=== PATIENT | male | born 1995 | race Caucasian/White ===

== ENCOUNTER → 2018-02-23 09:10 | Outpatient (CLI) | payer OTHER, MEDICAID, SELFPAY ==
[2018-02-23 10:32] LABS: Lithium < 0.2 mmol/L (0.6-1.2)
== END ==
PROVIDERS: Family Provider Family Medicine; PCP Family Medicine; Visit Provider Psychiatry & Neurology Psychiatry
DX: Z51.81 Encounter for therapeutic drug level monitoring (principal)
CPT/HCPCS: 36415; 80178

== ENCOUNTER → 2018-02-27 13:53 | Outpatient (CLI) | payer OTHER, MEDICAID, SELFPAY ==
[2018-02-27 14:35] LABS: Add Manual Diff / Slide Review NO; Basophils Percent Auto 0.4 % (0-2); Eosinophils Percent Auto 1.4 % (2-4); Hematocrit 46.7 % (41-53); Hemoglobin 15.8 g/dL (13.5-17.5); Lymphocytes Percent Auto 13.8 % (25-40); Mean Corpuscular HGB Conc 33.8 % (30-36); Mean Corpuscular Volume 85.8 fL (80-100); Monocytes Percent Auto 9.4 % (3-14); Neutrophils Absolute Auto 10100 /uL (3000-5900); Platelet Count 278 X10^3/uL (150-400); Red Blood Cell Count 5.44 X10^6/uL (4.5-5.9); Red Cell Distribution Width 13.6 % (11.6-14.8); White Blood Cell Count 13.4 X10^3/uL (4.5-11.0)
[2018-02-27 14:53] LABS: Lithium 0.4 mmol/L (0.6-1.2)
[2018-02-27 14:55] LABS: Alanine Aminotransferase 39 IU/L (21-72); Albumin 4.6 g/dL (3.5-5.0); Albumin Globulin Ratio 1.4 (1.0-2.8); Alkaline Phosphatase 115 U/L (38-126); Aspartate Aminotransferase 32 IU/L (17-59); BUN Creatinine Ratio 15.6 (6-22); Bilirubin Total 0.4 mg/dL (0.2-1.3); Blood Urea Nitrogen 14 mg/dL (9-20); Calcium 9.5 mg/dL (8.4-10.2); Carbon Dioxide 31 mmol/L (22-32); Chloride 101 mmol/L (98-107); Estimated Glomerular Filt Rate > 60.0 mL/min (>60); Globulin 3.3 g/dL (1.7-4.1); Glucose 96 mg/dL (70-100); HEMOLYSIS < 15 (0-50); Potassium 4.1 mmol/L (3.4-5.1); Sodium 143 mmol/L (137-145); Total Protein 7.9 g/dL (6.3-8.2)
== END ==
PROVIDERS: Psychiatry & Neurology Psychiatry; Family Provider Family Medicine; PCP Family Medicine; Visit Provider Physician Assistant
DX: R10.9 Unspecified abdominal pain (principal); Z51.81 Encounter for therapeutic drug level monitoring
CPT/HCPCS: 36415; 80053; 80178; 85025

== ENCOUNTER → 2018-03-02 12:26 | Outpatient (CLI) | payer OTHER, MEDICAID, SELFPAY ==
--- NOTE | 2018-03-02 13:46 | DI.CT.S_ITS ---
PROCEDURE: CT ABDOMEN PELVIS W CON INDICATIONS: Left lower quadrant abdominal pain. Tender with palpation TECHNIQUE: After the administration of oral and intravenous contrast, 5 mm thick sections acquired from the diaphragms to the symphysis. 5 mm thick coronal and sagittal reformats were performed. For radiation dose reduction, the following was used: automated exposure control, adjustment of mA and/or kV according to patient size. COMPARISON: None. FINDINGS: Image quality: Excellent. ABDOMEN: Lung bases: Lung bases are clear. Heart size is normal. Solid organs: Liver is normal in size and enhancement. Gallbladder appears normal. Biliary system is non-dilated. Pancreas enhances normally. Spleen is normal in size and enhancement. No adrenal nodules. Kidneys are normal in size and enhancement, without hydronephrosis. Peritoneum and bowel: Stomach, small bowel, and colon loops are normal in caliber and wall thickness. No free fluid or air. Nodes and vessels: No retroperitoneal or mesenteric adenopathy. Aorta and inferior vena cava are normal in caliber. Miscellaneous: No ventral hernias. PELVIS: Genitourinary: Bladder wall thickness is normal. Miscellaneous: No inguinal hernias or adenopathy. There is an acute inflammatory process at the left lower quadrant where focal inflammation in the pericolonic fat is present just below the axial level of the anterior superior iliac spine. This is best seen centered on series 2 image 53. Surrounding the inflammation is mild edema, and within the inflammatory area is an ovoid fat radiodensity, measuring up to 2.7 cm AP and 1.3 cm transverse. This may represent an epiploic appendage, which with torsion can produce findings mimicking acute diverticulitis. The likelihood of a diverticular inflammatory process is relatively low in this young patient of age 22. Bones: No suspicious bony lesions. No vertebral body compression fractures. IMPRESSION: Acute inflammatory process left lower quadrant likely representing epiploic appendagitis rather than acute diverticulitis in my opinion. Dictated by: Abhay Greco M.D. on 03/02/2018 at 14:04 Approved by: Abhay Greco M.D. on 03/02/2018 at 14:07
== END ==
PROVIDERS: Family Provider Family Medicine; PCP Family Medicine; Visit Provider Physician Assistant
DX: R10.32 Left lower quadrant pain (principal)
CPT/HCPCS: 74177; Q9967

== ENCOUNTER → 2018-03-17 08:00 | Outpatient (CLI) | payer OTHER, MEDICAID, SELFPAY | PROVIDERS: Family Provider Family Medicine; PCP Family Medicine | DX: Z23 Encounter for immunization (principal) | CPT/HCPCS: 90471; 90686 ==

== ENCOUNTER → 2018-09-25 12:38 | Outpatient (CLI) | payer OTHER, MEDICAID, SELFPAY ==
[2018-09-25 13:34] LABS: Urine Cocaine Negative (Negative); Urine Morphine/Opi cutoff 2000 Negative (Negative); Urine Tetrahydrocannabinol Positive (Negative)
[2018-09-25 13:35] LABS: Urine Amphetamines Negative (Negative); Urine Barbiturates Negative (Negative); Urine Benzodiazepines Negative (Negative); Urine MDMA Negative (Negative); Urine Methadone Negative (Negative); Urine Methamphetamines Negative (Negative); Urine Oxycodone Negative (Negative); Urine Phencyclidine Negative (Negative); Urine Tricyclic Antidepressant Negative (Negative)
[2018-09-25 13:46] LABS: Lithium 0.2 mmol/L (0.6-1.2)
[2018-09-25 13:48] LABS: Alanine Aminotransferase 29 IU/L (21-72); Albumin 4.7 g/dL (3.5-5.0); Albumin Globulin Ratio 1.5 (1.0-2.8); Alkaline Phosphatase 117 U/L (38-126); Aspartate Aminotransferase 29 IU/L (17-59); BUN Creatinine Ratio 16.3 (6-22); Bilirubin Total 0.2 mg/dL (0.2-1.3); Blood Urea Nitrogen 13 mg/dL (9-20); Calcium 9.6 mg/dL (8.4-10.2); Carbon Dioxide 28 mmol/L (22-32); Chloride 100 mmol/L (98-107); Estimated Glomerular Filt Rate > 60.0 mL/min (>60); Globulin 3.2 g/dL (1.7-4.1); Glucose 101 mg/dL (70-100); HEMOLYSIS < 15 (0-50); Potassium 4.4 mmol/L (3.4-5.1); Sodium 140 mmol/L (137-145); Total Protein 7.9 g/dL (6.3-8.2)
[2018-09-25 14:05] LABS: Free T4, Direct Thyroxine 0.94 ng/dL (0.78-2.19)
[2018-09-25 14:19] LABS: Thyroid Stimulating Hormone 2.47 uIU/mL (0.47-4.68)
== END ==
PROVIDERS: Family Provider Family Medicine; PCP Family Medicine; Visit Provider Psychiatry & Neurology Psychiatry
DX: F31.73 Bipolar disorder, in partial remission, most recent episode manic (principal)
CPT/HCPCS: 36415; 80053; 80178; 80305; 84439; 84443

== ENCOUNTER → 2018-10-21 07:42 | Outpatient (CLI) | payer OTHER, MEDICAID, SELFPAY ==
[2018-10-21 09:45] LABS: Hemoglobin A1C% w Est Avg Glu 5.2 % (4.0-6.0)
[2018-10-21 09:51] LABS: Alanine Aminotransferase 28 IU/L (21-72); Albumin 4.7 g/dL (3.5-5.0); Albumin Globulin Ratio 1.3 (1.0-2.8); Alkaline Phosphatase 131 U/L (38-126); Aspartate Aminotransferase 31 IU/L (17-59); BUN Creatinine Ratio 16.3 (6-22); Bilirubin Total 0.7 mg/dL (0.2-1.3); Blood Urea Nitrogen 13 mg/dL (9-20); Calcium 9.4 mg/dL (8.4-10.2); Carbon Dioxide 31 mmol/L (22-32); Chloride 102 mmol/L (98-107); Cholesterol 202 mg/dL (140-199); Estimated Glomerular Filt Rate > 60.0 mL/min (>60); Globulin 3.6 g/dL (1.7-4.1); Glucose 96 mg/dL (70-100); HDL Cholesterol 39 mg/dL (40-60); HEMOLYSIS 22 (0-50); LDL Cholesterol Calculated 123 mg/dL (<100); Potassium 3.9 mmol/L (3.4-5.1); Sodium 141 mmol/L (137-145); Total Protein 8.3 g/dL (6.3-8.2); Triglycerides 199 mg/dL (35-150)
[2018-10-21 09:59] LABS: Lithium 0.3 mmol/L (0.6-1.2)
[2018-10-21 10:46] LABS: HIV 1 and 2 Antibody NEGATIVE (NEGATIVE)
[2018-10-21 11:36] LABS: Urine N gonorrhoeae NOT DETECTED
[2018-10-21 11:54] LABS: Urine Chlamydia NOT DETECTED
== END ==
PROVIDERS: Family Provider Family Medicine; PCP Family Medicine; Visit Provider Psychiatry & Neurology Psychiatry
DX: F31.9 Bipolar disorder, unspecified (principal)
CPT/HCPCS: 36415; 80053; 80061; 80178; 83036; 84403; 86703; 87491; 87591

== ENCOUNTER 2018-12-27 19:37 | Emergency (ER) | payer OTHER, SELFPAY ==
[2018-12-27 19:40] VITALS: BP 142/84; PULSE 78; RESP 16; TEMP 36.4; O2SAT 100; BMI 27.3
--- NOTE | 2018-12-27 20:05 | DI.RAD.S_ITS ---
PROCEDURE: XR LUMBAR SPINE 2-3V INDICATIONS: L low back pain TECHNIQUE: 3 views of the lumbar spine were acquired. COMPARISON: None. FINDINGS: Bones: 5 zvn-iql-cnitlum vertebrae are present. There is straightening of normal lumbar lordosis. No acute vertebral body compression fractures. No suspicious bony lesions. Soft tissues: Overlying bowel gas pattern is normal. No suspicious soft tissue calcifications. IMPRESSION: Lumbar spine without acute osseous abnormalities. Straightening of lumbar lordosis likely related to patient positioning and/or concurrent muscle spasms. Dictated by: Louis Escamilla M.D. on 12/27/2018 at 20:39 Approved by: Louis Escamilla M.D. on 12/27/2018 at 20:41
[2018-12-27] MEDS: ACETAMINOPHEN 325 MG TABLET 975 MG PO (20:18)
--- NOTE | 2018-12-27 20:44 | ED_ITS ---
HPI - Back Pain/Injury <YOUSUF Maher - Last Filed: 12/27/18 22:12> General Chief Complaint: Back Pain/Injury Stated Complaint: Severe lower back pain on Lft Time Seen by Provider: 12/27/18 19:47 Source: patient and other (friend) Mode of arrival: ambulatory Limitations: no limitations History of Present Illness HPI Narrative: This is a 23-year-old male, nonsmoker, presents ER with his friend in chief complain of left-sided low back pain to buttock area since yesterday. The patient denies injuries, trauma, lifting heavy objects. He reports can't remember how it started, however states pain increases with movement, changing in position or walking. He denies fever, chills, nausea/vomiting, fatigue, urinary symptoms, urinary/bowel incontinence, tingling numbness to lower extremities. He denies history of or current IV drug use. He states he had back issues for about 10 years years ago from the bad posture. He was actually seen at walk-in clinic today and had received Ketoralac 30 mg injection and prescribed with cyclobenzaprine. The patient reports after the medications the pain was mildly improved but he is here since there is no significant improvement and no tests were done at the walk-in clinic. Related Data Previous Rx's Medication Instructions Recorded doxycycline monohydrate 100 mg 100 mg PO BID #20 cap 03/30/18 capsule lithium carbonate 300 mg capsule 600 mg PO BEDTIME #60 cap 06/22/18 venlafaxine ER 150 mg 150 mg PO QAM #30 cap 12/23/18 capsule,extended release 24 hr cyclobenzaprine 10 mg tablet 10 mg PO BEDTIME #30 tab 12/27/18 lidocaine 1 - 2 patch TOP DAILY #15 each 12/27/18 Allergies Allergy/AdvReac Type Severity Reaction Status Date / Time No Known Drug Allergies Allergy Verified 12/27/18 14:46 Review of Systems <YOUSUF Maher - Last Filed: 12/27/18 22:12> Review of Systems General: The HPI HEENT: Denies sinus pain, ear pain, sore throat, difficulty swallowing, dizziness. Respiratory: Denies dyspnea, cough, wheezing, hemoptysis, sputum. Cardiovascular: Denies chest pain, palpitations, orthopnea, edema. Gastrointestinal: Denies nausea, vomiting, abdominal pain, diarrhea, constipation, melena. : See HPI Musculoskeletal: See HPI Skin: Denies rash, skin lesions, or other. Neurologic: Denies weakness, headache, numbness, change in speech, confusion, seizures, incoordination. Psychiatric: No concerning psychosocial issues. 12-point review of systems is negative except for those stated above. PFSH <YOUSUF Maher - Last Filed: 12/27/18 22:12> Medical History (Updated 12/27/18 @ 21:53 by YOUSUF Maher) Bipolar 2 disorder, major depressive episode (Acute) Social History Smoking Status: Never smoker second hand exposure: No alcohol intake: current substance use type: marijuana Social History Smoking Status: Never smoker second hand exposure: No alcohol intake: current substance use type: marijuana Exam <YOUSUF Maher - Last Filed: 12/27/18 22:12> Narrative Exam Narrative: GEN: Alert, oriented x 3, and in no acute distress. Head: Normal cephalic, atraumatic. No scalp or temporal tenderness, palpable mass or rash. EYES: Pupils are equal, round, and reactive to light and accommodation. Extraocular muscles are intact bilaterally. There is no subconjunctival hemorrhage, exudate and sclera non-icteric. ENT: Nose without bleeding, purulent discharge. Mucous membrane moist, no mucosal lesion. Throat without erythema, tonsillar hypertrophy or exudate. Uvula in midline, airway patent. Neck: Trachea in midline. No JVD, non-tender without lymphadenopathy. No masses or thyroid megaly. Supple, non-tender and meningeal signs. CARDIAC: Normal regular rate and rhythm without murmurs, gallops, or rubs. No chest wall tenderness. No peripheral edema, cyanosis or pallor. Capillary refill is less than 2 seconds. No carotid bruits. RESPIRATORY: Lungs are cleat to auscultate bilaterally. No cough, wheezes, rales, or rhonchi. No stridor, respiratory distress, increase work of breathing, or accessary muscle used. ABD: Abdomen soft, nontender and non-distended. No guarding or rebound tenderness to palpate. Bowel sounds are normal in all 4 quadrants. There is no palpable masses or organomegaly. EXT: Full painless ROM of all extremities with no loss of sensation, strength, effusion or edema. SKIN: Warm, dry, normal color for patient. No erythema, lesions or rash. NEUROLOGICAL: Alert and oriented to place, time and person. Sensation and motor function intact bilaterally. No facial droops, dysphasia. PSYCHIATRIC: Good judgement and reason, without hallucinations, abnormal affect or abnormal behaviors during the examination. Initial Vital Signs Initial Vital Signs: Vital Signs Temperature 97.6 F 12/27/18 19:40 Pulse Rate 78 12/27/18 19:40 Respiratory Rate 16 12/27/18 19:40 Blood Pressure 142/84 H 12/27/18 19:40 Pulse Oximetry 100 12/27/18 19:40 Back/Spine/Pelvis Back: normal to inspection Cervical Spine: normal cervical lordosis and cervical ROM normal Thoracic/Lumbar Spine: thoracic and lumbar spine normal to inspection, pain with thoraco-lumbar ROM, paraspinal tenderness (L side), thoraco-lumbar ROM limited, thoraco-lumbar spasm, No thoracic spinal tenderness and No lumbar spinal tenderness Sacroiliac Joints: No pain elicited by compression of iliac crest maneuver and No pain elicited by passive hyperextension of lower extremity <Simeon Julien DO - Last Filed: 12/28/18 03:52> Initial Vital Signs Initial Vital Signs: Vital Signs Temperature 97.6 F 12/27/18 19:40 Pulse Rate 78 12/27/18 19:40 Respiratory Rate 16 12/27/18 19:40 Blood Pressure 142/84 H 12/27/18 19:40 Pulse Oximetry 100 12/27/18 19:40 Course <YOUSUF Maher - Last Filed: 12/27/18 22:12> Orders Ordered: ED Orders 12/27/18 20:05 XR lumbar spine 2-3V Stat Discontinued Medications Acetaminophen (Tylenol) 975 mg PO NOW ONE Stop: 12/27/18 20:06 Last Admin: 12/27/18 20:18 Dose: 975 mg Vital Signs - 8 hr 12/27/18 21:45 Pulse Rate 67 Respiratory Rate 16 Blood Pressure 113/71 Pulse Oximetry 100 <Simeon Julien DO - Last Filed: 12/28/18 03:52> Orders Ordered: ED Orders 12/27/18 20:05 XR lumbar spine 2-3V Stat Discontinued Medications Acetaminophen (Tylenol) 975 mg PO NOW ONE Stop: 12/27/18 20:06 Last Admin: 12/27/18 20:18 Dose: 975 mg Vital Signs - 8 hr 12/27/18 21:45 Pulse Rate 67 Respiratory Rate 16 Blood Pressure 113/71 Pulse Oximetry 100 MDM - Back Pain/Injury <YOUSUF Maher - Last Filed: 12/27/18 22:12> Differential Diagnosis Differential diagnosis: Likely strain of lumbar region, pyelonephritis and other (kidney stone) Medical Records Attestation: I reviewed the patient's medical records. Lab Data Attestation: I reviewed the patient's lab results. Urine Dip Bedside Urine Glucose Negative Bedside Urine Bilirubin + 1 Bedside Urine Ketone +/- 5 Urine Specific Elfrida 1.020 Bedside Urine Occult Blood - Negative Bedside Urine pH 6.5 Bedside Urine Protein +/- 15 Bedside Urine Urobilinogen +/- 1mg Bedside Urine Nitrite - Negative Bedside Urine Leukocytes - Negative Esterase Imaging Data XR-lumbar: Radiologist's impression: Noy Jacques 23 M 1995 [place] [address] XRay Report Signed Patient: WilsonquentinNoy ponce TMR#: [id number] : 1995Acct:[id number] Age/Sex: 23 / MDate of Service: 12/27/18 Loc: ED Accession Number: [id number] Procedure: XR lumbar spine 2-3V Ordering Provider: Duane Haynes PROCEDURE: XR LUMBAR SPINE 2-3V INDICATIONS: L low back pain TECHNIQUE: 3 views of the lumbar spine were acquired. COMPARISON: None. FINDINGS: Bones: 5 eri-aif-tsbskbu vertebrae are present. There is straightening of normal lumbar lordosis. No acute vertebral body compression fractures. No suspicious bony lesions. Soft tissues: Overlying bowel gas pattern is normal. No suspicious soft tissue calcifications. IMPRESSION: Lumbar spine without acute osseous abnormalities. Straightening of lumbar lordosis likely related to patient positioning and/or concurrent muscle spasms. Dictated by: Louis Escamilla M.D. on 12/27/2018 at 20:39 Approved by: Louis Escamilla M.D. on 12/27/2018 at 20:41 [facility] Narrative Medical decision making narrative: The patient was medicated with Tylenol 975 mg while he was in ED. He was medicated with Ketolac 30mg IM inj at 3:30 p.m. while he was at walk-in clinic today. Lumbar x-ray shows no acute findings. His lumbar spine has lordosis likely related to his positioning or concurrent muscle spasms. His urine test shows no nitrate, leukocyte esterase. He does not have constitutional symptoms, he is not a IV drug user, does not endorse saddle anesthesia, incontinence. His lower extremities had equal, bilateral full strength against resistence. The patient reports hamstring tightness and discomfort when both legs were elevated at passively but denies back pain. When the patient was reassessed he reports his back pain has decreased mildly and reported as 6/10. We discussed in length that his pain appears to be related as musculoskeletal origin. We discussed red flag symptoms such as fever, chills, nausea/vomiting, increasing or severe pain, fatigue, saddle anesthesia, incontinence, tingling numbness or weakness to lower extremities and to follow with his primary care physician this coming week. He was advised to continue with [id number]-[id number]-fypxodj Tylenol and/or Motrin for pain management and to use cyclobenzaprine that was prescribed by walk-in clinic. Patient was interested in Lidoderm patch to try for his back pain and advised to use on for 12 hours and off for 12 hours. The patient also advised to use warm pack when he is not using Lidoderm for muscle relax. Patient and his friend agrees with the plan of treatment and no further questions expressed at this time. <Simeon Julien DO - Last Filed: 12/28/18 03:52> Lab Data Urine Dip Bedside Urine Glucose Negative Bedside Urine Bilirubin + 1 Bedside Urine Ketone +/- 5 Urine Specific Elfrida 1.020 Bedside Urine Occult Blood - Negative Bedside Urine pH 6.5 Bedside Urine Protein +/- 15 Bedside Urine Urobilinogen +/- 1mg Bedside Urine Nitrite - Negative Bedside Urine Leukocytes - Negative Esterase Discharge Plan Departure Patient Disposition: Home Clinical Impression: Low back pain Qualifiers: Chronicity: acute Back pain laterality: left Sciatica presence: without sciatica Qualified Code(s): M54.5 - Low back pain Discharge Date/Time: 12/27/18 21:46 Interventions: ED Discharge Assessment Last Done: 12/27/18 21:45 Instructions: DI for Low Back Pain Activity Restrictions/Additional Instructions: You have been diagnosed with [low back pain. Your urine test shows no indication of infection or blood in your urine. Your x-ray test in lumbar area shows no acute findings or fracture is]. What to do: *Take your medications as directed. As we discussed, you can take hqbh-sxm-qbhelwa Tylenol or/and Ibuprofen as needed for pain. He can take ibuprofen 400-800 mg 4-3 times a day. Please take it with food to decrease stomach irritation. *Follow up with your primary care provider in 2-3 days, call for an appointment. Let them know you were seen in the ED and that we asked you to be seen in follow up. *Return to ED if you have any new, worsening, or concerning symptoms, such as [severe back pain, numbness tingling to groin area, incontinence, weakness to your lower extremities, chest pain, breathing difficulty, unable to tolerate fluids, fever/chills, any acute concerns]. Prescriptions: New lidocaine 5 % adhesive patch,medicated 1 - 2 patch TOP DAILY Qty: 15 RF: 0 No Action cyclobenzaprine 10 mg tablet 10 mg PO BEDTIME Qty: 30 RF: 0 doxycycline monohydrate 100 mg capsule 100 mg PO BID Qty: 20 RF: 0 lithium carbonate 300 mg capsule 600 mg PO BEDTIME Qty: 60 RF: 5 venlafaxine 150 mg capsule,extended release 24hr 150 mg PO QAM Qty: 30 RF: 5 Referrals: Chris Tejeda MD [Primary Care Provider] - <Simeon Julien DO - Last Filed: 12/28/18 03:52> [facility] Attestation: I was immediately available in the department for consultation. Documentation has been reviewed. I agree with assessment and plan.
[2018-12-27 21:45] VITALS: BP 113/71; PULSE 67; RESP 16; O2SAT 100
== END 2018-12-27 21:46 | disposition home or self-care (01) ==
PROVIDERS: Emergency Provider Nurse Practitioner Family; PCP Family Medicine
DX: M54.5 Low back pain (principal)
CPT/HCPCS: 72100; 81003; 99282; 99283

== ENCOUNTER 2019-01-20 09:00 | Outpatient (RCR) | payer OTHER, SELFPAY ==
--- NOTE | 2018-12-30 16:56 | PT.OIE ---
Current Diagnoses Low back pain (12/30/18) Past Medical History (Last Updated 12/27/18 @ 21:53 by YOUSUF Maher) Bipolar 2 disorder, major depressive episode (Acute) Provider Visit Care Team Role Provider Type Chris Tejeda MD Attending Provider Physician Primary Care Provider Specialty: Family Practice Address: [address] [place] [address], [facility] Email: [email or web address] Physical Therapy Initial Evaluation PT-OP-A Visit Information Start: 12/30/18 13:59 Freq: Status: Active Protocol: Document 12/30/18 13:59 EA (Rec: 12/30/18 14:30 EA [id number]) Out-Patient Physical Therapy Visit Information Visit Information Visit Type Initial Evaluation Visit Start Time 13:00 Visit Stop Time 13:55 Total Visit Minutes 55 Visit Number 1 Evaluation Information Evaluation Date 12/30/18 Precautions Precautions None identified PT-OP-B Current Condition Start: 12/30/18 13:59 Freq: Status: Active Protocol: Document 12/30/18 13:59 EA (Rec: 12/30/18 14:30 EA [id number]) Current Condition History of Current Condition Onset Date 12/26/18 Current Complaints Left low back and upper gluteals pain History of Current Condition Pt reports no recent injury he could relate to current condition; states he always had bad posture. Pt went to ER on 12/27/18 due to severe pain and was given muscle relaxant and underwent lumbar X-rays. He reports followed up check up yesterday with a probable disk herniation diagnosis. 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 Prior Treatments and Tests None reported Recent lumbar X-rays Future Testing and Treatments Planned None reported Treatment Goals Patient/Caregiver Goals 1. Complete pain relief 2. 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 Baseline Function- Recreation/Hobbies Sedentary lifestyle with once a week of yoga exercises Current Functional Impairments (Reported) Functional Limitations- ADL's Independent with moderate difficulty in all functional mobility. Functional Limitations- Mobility/Gait Unable to walk > a mile due to pain Functional Limitations- Work/School Moderate difficulty in all tasks that requires bending, lifting and twisting Functional Limitations- Recreation/ Unable to get back to Yoga Hobbies exercises yet. Personal Factors Other Personal Factors That May Effect Bipolar disorder Therapy/Recovery PT-OP-C Subjective Start: 12/30/18 13:59 Freq: Status: Active Protocol: Document 12/30/18 13:59 EA (Rec: 12/30/18 14:30 EA [id number]) OP-PT Subjective Patient Comments Patient Comments It's difficult to get up from sitting to standing . Patient Reported Progress Same Patient Questionnaires Oswestry Low Back Index Oswestry Score 28 Oswestry Impairment 20 to 39% Impaired (Score 20- 39) PT-OP-F Manual Assessment Start: 12/30/18 13:59 Freq: Status: Active Protocol: Document 12/30/18 15:15 EA (Rec: 12/30/18 15:33 EA [id number]) Manual Assessments Soft Tissue Assessment Soft Tissue Mobility Assessment Tightness to paralumabars, QL, hip ER PT-OP-G Mobility & Gait Start: 12/30/18 13:59 Freq: Status: Active Protocol: Document 12/30/18 15:15 EA (Rec: 12/30/18 15:33 EA [id number]) OP Mobility Evaluation Bed Mobility Rolling Mod difficulty Supine to and from Sit Mod difficulty Transfers Sit to Stand Mode difficulty OP Gait Assessment Gait Gait Assistance Required: Independent Assistive Devices Assistive Device None Comments Gait Comments Stiffed pelvis with limited pelvic vertical displacement with slight antalgic PT-OP-H Neuro Start: 12/30/18 13:59 Freq: Status: Active Protocol: Document 12/30/18 15:15 EA (Rec: 12/30/18 15:33 EA [id number]) Deep Tendon Reflex & Clonus Assessment Deep Tendon Reflex Bilateral Achilles Deep Tendon Reflex 2+ Normal Bilateral Patellar Deep Tendon Reflex 2+ Normal PT-OP-J Posture/Palpation/Skin Start: 12/30/18 13:59 Freq: Status: Active Protocol: Document 12/30/18 15:15 EA (Rec: 12/30/18 15:33 EA [id number]) Posture Evaluation Comments Posture Comments Right hip lat shidted to right with lateral lumbar side bend to left. Palpation Assessment Location One Palpation Location Paralumbars, QL, upper/mid gluteals Palpation Findings Spasm Muscle Guarding PT-OP-K Range of Motion Start: 12/30/18 13:59 Freq: Status: Active Protocol: Document 12/30/18 15:15 EA (Rec: 12/30/18 15:33 EA [id number]) Lumbar Spine Range of Motion Lumbar Spine Active Percentage Testing Position Standing Flexion 50 Extension 75 Rotation Left 55 Rotation Right 50 Lateral Flexion Left 65 Lateral Flexion Right 50 ROM Limitations Soft Tissue Tightness Pain PT-OP-L Special Tests Start: 12/30/18 13:59 Freq: Status: Active Protocol: Document 12/30/18 15:15 EA (Rec: 12/30/18 15:33 EA [id number]) Special Tests Lumbar Spine Special Tests Prone Instability Test Test Results - Slump Test Results - Straight Leg Raise Test Results Left + PT-OP-M Strength Start: 12/30/18 13:59 Freq: Status: Active Protocol: Document 12/30/18 15:15 EA (Rec: 12/30/18 15:33 EA [id number]) Trunk Strength Trunk Manual Muscle Testing Testing Position Sitting Flexion 4- Good- Extension 4- Good- Rotation Left 4- Good- Rotation Right 4- Good- Lateral Flexion Left 4- Good- Lateral Flexion Right 4- Good- Comments Pain limits MMT Hip Strength Hip Manual Muscle Testing Left Reason Not Measured WFL Knee Strength Knee Manual Muscle Testing Left Reason Not Measured WFL Ankle/Foot Strength Ankle and Foot Manual Muscle Testing Left Reason Not Measured WFL Toe Strength Toe Manual Muscle Testing Great Toe Reason Not Measured WFL PT-OP-Q Treatments Start: 12/30/18 13:59 Freq: Status: Active Protocol: Document 12/30/18 13:59 EA (Rec: 12/30/18 14:30 EA [id number]) Self-Care/Home Management Treatment Education Patient Education Body Mechanics Home Exercise Program Joint Protection Pain Management Posture Safety PT-OP-R Modalities Start: 12/30/18 13:59 Freq: Status: Active Protocol: Document 12/30/18 13:59 EA (Rec: 12/30/18 14:30 EA [id number]) Electric Stimulation Electric Stimulation Interferential Current (IFC) Body Location left paralumabars and upper gluteals Intensity 16 Contraction Type Normal Patient Position Supine Combined With Heat/Cold Cold Pack PT-OP-T Assessment and Plan Start: 12/30/18 13:59 Freq: Status: Active Protocol: Document 12/30/18 13:59 EA (Rec: 12/30/18 14:30 EA [id number]) Physical Therapy Assessment Rehab Potential Rehabilitation Potential Good Evaluation Complexity Number of Personal Factors/Comorbidities 1-2 Number of Body Systems Impaired 3 Clinical Presentation at Evaluation Evolving Impairments Impairments Activity Tolerance Functional Activities Gait Pain Posture ROM Soft Tissue Mobility Strength Goals Four Impairment No HEP in place Oil Deliverer Goal (LTG) Patient will demonstrate indep progressive HEP LTG Duration 4 wks Three Impairment OSWESTRY low back disability score of 28/50 Oil Deliverer Goal (LTG) Patient will have OSWESTRY score of less than 10/50 to enhance quality of life LTG Duration 5 wks Two Impairment Impaired lifting Long-Term Goal (LTG) Patient will lift more than 15 # with proper body mechanics with no increase of pain to perform daily task LTG Duration 4 wks One Impairment Decreased tolerance to standing Long-Term Goal (LTG) Patient will stand up more than 30 mins without increase of symptoms LTG Duration 4 wks Assessment Summary Assessment Ambulatory with minimally distress 23 y/o M patient with a referring diagnosis of low back pain. Today patient presented with difficulty in functional transfers and mobility due to pain. Signs and symptoms is consistent with lumbar nerve irritation possibly from disc herniation, with sensory affectation to left L3, L4, L5, however no signs of weakness as patient able to walk on heels and toes . Lumbar ROM assessment reveals limited to SF to right and forward bending. Patient 's slow marisabel with stiffed pelvis is possibly due to back spasm and muscular guarding at this time. He is a good candidate for skilled PT and would greatly benefit to manual PT, therapeutic exercises and modalities for pain. Physical Therapy Plan Frequency and Duration Frequency of Treatment 2x/Week Duration of Treatment 8 Plan of Care Start Date 12/30/18 Plan of Care End Date 02/24/19 Therapeutic Interventions Therapeutic Interventions Home Exercise Program Joint Mobilizations Manual Therapy Patient/Caregiver Education Self-Care/Home Management Soft Tissue Mobilization Taping Therapeutic Exercises Modalities Cold Pack/Ice Massage Electric Stimulation Hot Packs Traction- Mechanical Ultrasound Next Visit Focus/Plan Next Note Type Treatment Note Next Visit Plan Review HEP, Manual PT, flexibility, modalities as needed
--- NOTE | 2018-12-30 16:57 | PT.OPPOC ---
Current Diagnoses Low back pain (12/30/18) Provider Visit Care Team Role Provider Type Chris Tejeda MD Attending Provider Physician Primary Care Provider Specialty: Family Practice Address: [address] [place] [address], [facility] Email: [email or web address] Plan Of Care PT-OP-T Assessment and Plan Start: 12/30/18 13:59 Freq: Status: Active Protocol: Document 12/30/18 13:59 EA (Rec: 12/30/18 14:30 EA [id number]) Physical Therapy Assessment Rehab Potential Rehabilitation Potential Good Evaluation Complexity Number of Personal Factors/Comorbidities 1-2 Number of Body Systems Impaired 3 Clinical Presentation at Evaluation Evolving Impairments Impairments Activity Tolerance Functional Activities Gait Pain Posture ROM Soft Tissue Mobility Strength Goals Four Impairment No HEP in place Plant And Instrument Engineer Goal (LTG) Patient will demonstrate indep progressive HEP LTG Duration 4 wks Three Impairment OSWESTRY low back disability score of 28/50 Plant And Instrument Engineer Goal (LTG) Patient will have OSWESTRY score of less than 10/50 to enhance quality of life LTG Duration 5 wks Two Impairment Impaired lifting Plant And Instrument Engineer Goal (LTG) Patient will lift more than 15 # with proper body mechanics with no increase of pain to perform daily task LTG Duration 4 wks One Impairment Decreased tolerance to standing Plant And Instrument Engineer Goal (LTG) Patient will stand up more than 30 mins without increase of symptoms LTG Duration 4 wks Assessment Summary Assessment Ambulatory with minimally distress 23 y/o M patient with a referring diagnosis of low back pain. Today patient presented with difficulty in functional transfers and mobility due to pain. Signs and symptoms is consistent with lumbar nerve irritation possibly from disc herniation, with sensory affectation to left L3, L4, L5, however no signs of weakness as patient able to walk on heels and toes . Lumbar ROM assessment reveals limited to SF to right and forward bending. Patient 's slow marisabel with stiffed pelvis is possibly due to back spasm and muscular guarding at this time. He is a good candidate fo skilled PT and would greatly benefit to manual PT, therapeutic exercises and modalities for pain. Physical Therapy Plan Frequency and Duration Frequency of Treatment 2x/Week Duration of Treatment 8 Plan of Care Start Date 12/30/18 Plan of Care End Date 02/24/19 Therapeutic Interventions Therapeutic Interventions Home Exercise Program Joint Mobilizations Manual Therapy Patient/Caregiver Education Self-Care/Home Management Soft Tissue Mobilization Taping Therapeutic Exercises Modalities Cold Pack/Ice Massage Electric Stimulation Hot Packs Traction- Mechanical Ultrasound Next Visit Focus/Plan Next Note Type Treatment Note Next Visit Plan Review HEP, Manual PT, flexibility, modalities as needed Plan of Care Dates Plan of Care Start Date 12/30/18 Plan of Care End Date 02/24/19 Please Sign and Return: I have reviewed this Plan of Care and certify that the skilled therapy services above are required to meet the patient?s needs. Physician Signature Date Printed Name and Credentials Clinical Instructor Signature Printed Name and Credentials
--- NOTE | 2019-01-08 10:01 | PT.OTN ---
Current Diagnoses Low back pain (01/08/19) Physical Therapy Treatment Note PT-OP-A Visit Information Start: 12/30/18 13:59 Freq: Status: Active Protocol: Document 01/08/19 09:00 DCW (Rec: 01/08/19 10:01 DCW [id number]) Out-Patient Physical Therapy Visit Information Visit Information Visit Type Treatment Note Visit Start Time 09:00 Visit Stop Time 09:50 Total Visit Minutes 50 Visit Number 2 Number of WASHING AND SCREENING PLANT SUPERVISOR Visits 0 Evaluation Information Evaluation Date 12/30/18 PT-OP-B Current Condition Start: 12/30/18 13:59 Freq: Status: Active Protocol: Document 12/30/18 13:59 EA (Rec: 12/30/18 14:30 EA [id number]) Current Condition History of Current Condition Onset Date 12/26/18 Current Complaints Left low back and upper gluteals pain History of Current Condition Pt reports no recent injury he could relate to current condition; states he always had bad posture. Pt went to ER on 12/27/18 due to severe pain and was given muscle relaxant and underwent lumbar X-rays. He reports followed up check up yesterday with a probable disc heniation diagnosis. 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 Prior Treatments and Tests None reported Recent lumbar X-rays Future Testing and Treatments Planned None reported Treatment Goals Patient/Caregiver Goals 1. Complete pain relief 2. 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 Baseline Function- Recreation/Hobbies Sedentary lifestyle with once a week of yoga exercises Current Functional Impairments (Reported) Functional Limitations- ADL's Independent with moderate difficulty in all functional mobility. Functional Limitations- Mobility/Gait Unable to walk > a mile due to pain Functional Limitations- Work/School Moderate difficulty in all tasks that requires bending, lifting and twisting Functional Limitations- Recreation/ Unable to get back to Yoga Hobbies exercises yet. Personal Factors Other Personal Factors That May Effect Bipolar disorder Therapy/Recovery PT-OP-C Subjective Start: 12/30/18 13:59 Freq: Status: Active Protocol: Document 01/08/19 09:00 DCW (Rec: 01/08/19 10:01 DCW [id number]) OP-PT Subjective Patient Comments Patient Comments It's better than last week. PT-OP-F Manual Assessment Start: 12/30/18 13:59 Freq: Status: Active Protocol: Document 12/30/18 15:15 EA (Rec: 12/30/18 15:33 EA [id number]) Manual Assessments Soft Tissue Assessment Soft Tissue Mobility Assessment Tightness to paralumabars, QL, hip ER PT-OP-G Mobility & Gait Start: 12/30/18 13:59 Freq: Status: Active Protocol: Document 12/30/18 15:15 EA (Rec: 12/30/18 15:33 EA [id number]) OP Mobility Evaluation Bed Mobility Rolling Mod difficulty Supine to and from Sit Mod difficulty Transfers Sit to Stand Mode difficulty OP Gait Assessment Gait Gait Assistance Required: Independent Assistive Devices Assistive Device None Comments Gait Comments Stiffed pelvis with limited pelvic vertical displacement with slight antalgic PT-OP-H Neuro Start: 12/30/18 13:59 Freq: Status: Active Protocol: Document 12/30/18 15:15 EA (Rec: 12/30/18 15:33 EA [id number]) Deep Tendon Reflex & Clonus Assessment Deep Tendon Reflex Bilateral Achilles Deep Tendon Reflex 2+ Normal Bilateral Patellar Deep Tendon Reflex 2+ Normal PT-OP-J Posture/Palpation/Skin Start: 12/30/18 13:59 Freq: Status: Active Protocol: Document 12/30/18 15:15 EA (Rec: 12/30/18 15:33 EA [id number]) Posture Evaluation Comments Posture Comments Right hip lat shidted to right with lateral lumbar side bend to left. Palpation Assessment Location One Palpation Location Paralumbars, QL, upper/mid gluteals Palpation Findings Spasm Muscle Guarding PT-OP-K Range of Motion Start: 12/30/18 13:59 Freq: Status: Active Protocol: Document 12/30/18 15:15 EA (Rec: 12/30/18 15:33 EA [id number]) Lumbar Spine Range of Motion Lumbar Spine Active Percentage Testing Position Standing Flexion 50 Extension 75 Rotation Left 55 Rotation Right 50 Lateral Flexion Left 65 Lateral Flexion Right 50 ROM Limitations Soft Tissue Tightness Pain PT-OP-L Special Tests Start: 12/30/18 13:59 Freq: Status: Active Protocol: Document 12/30/18 15:15 EA (Rec: 12/30/18 15:33 EA [id number]) Special Tests Lumbar Spine Special Tests Prone Instability Test Test Results - Slump Test Results - Straight Leg Raise Test Results Left + PT-OP-M Strength Start: 12/30/18 13:59 Freq: Status: Active Protocol: Document 12/30/18 15:15 EA (Rec: 12/30/18 15:33 EA [id number]) Trunk Strength Trunk Manual Muscle Testing Testing Position Sitting Flexion 4- Good- Extension 4- Good- Rotation Left 4- Good- Rotation Right 4- Good- Lateral Flexion Left 4- Good- Lateral Flexion Right 4- Good- Comments Pain limits MMT Hip Strength Hip Manual Muscle Testing Left Reason Not Measured WFL Knee Strength Knee Manual Muscle Testing Left Reason Not Measured WFL Ankle/Foot Strength Ankle and Foot Manual Muscle Testing Left Reason Not Measured WFL Toe Strength Toe Manual Muscle Testing Great Toe Reason Not Measured WFL PT-OP-Q Treatments Start: 12/30/18 13:59 Freq: Status: Active Protocol: Document 01/08/19 09:00 DCW (Rec: 01/08/19 10:01 DCW [id number]) Therapeutic Exercises Supine Exercises Piriformis Stretch Supine Exercise Name Figure-4, [id number] chest Side bilateral Sitting Exercises Piriformis Stretch Sitting Exercise Name Seated figure-4 Manual Therapy Treatment Soft Tissue Mobilization Piriformis Body Location B Piriformis Mobilization Type Strumming Sustained Pressure Body Position Prone Paraspinals Body Location B Lumbar paraspinals Mobilization Type Strumming Sustained Pressure Body Position Prone Joint Mobilizations Lumbar Spine Joint L1-5 Direction P->A Grade II Body Position Prone Manual Traction Lumbar Details B Short-axis Txn /c strap Body Position Hooklying PT-OP-R Modalities Start: 12/30/18 13:59 Freq: Status: Active Protocol: Document 01/08/19 09:00 DCW (Rec: 01/08/19 10:01 DCW [id number]) Electric Stimulation Electric Stimulation Interferential Current (IFC) Body Location left paralumabars and upper gluteals Duration (Minutes) 15 Intensity 16 Contraction Type Normal Patient Position Supine Combined With Heat/Cold Cold Pack PT-OP-T Assessment and Plan Start: 12/30/18 13:59 Freq: Status: Active Protocol: Document 01/08/19 09:00 DCW (Rec: 01/08/19 10:01 DCW [id number]) Physical Therapy Assessment Impairments Impairments Activity Tolerance Functional Activities Gait Pain Posture ROM Soft Tissue Mobility Strength Goals Four Impairment No HEP in place Prison Goal (LTG) Patient will demonstrate indep progressive HEP LTG Duration 4 wks Three Impairment OSWESTRY low back disability score of 28/50 Associate Professor Of Literature Goal (LTG) Patient will have OSWESTRY score of less than 10/50 to enhance quality of life LTG Duration 5 wks Two Impairment Impaired lifting Associate Professor Of Literature Goal (LTG) Patient will lift more than 15 # with proper body mechanics with no increase of pain to perform daily task LTG Duration 4 wks One Impairment Decrased tolerance to standing Prison Goal (LTG) Patient will stand up more than 30 mins without increase of symptoms LTG Duration 4 wks Assessment Summary Assessment Pt tolerated treatment well with no complaints of increased symptoms. Pt noted piriformis STM kind of hurts but actually feels good. Physical Therapy Plan Frequency and Duration Frequency of Treatment 2x/Week Duration of Treatment 8 Plan of Care Start Date 12/30/18 Plan of Care End Date 02/24/19 Therapeutic Interventions Therapeutic Interventions Home Exercise Program Joint Mobilizations Manual Therapy Patient/Caregiver Education Self-Care/Home Management Soft Tissue Mobilization Taping Therapeutic Exercises Modalities Cold Pack/Ice Massage Electric Stimulation Hot Packs Traction- Mechanical Ultrasound Next Visit Focus/Plan Next Note Type Treatment Note Next Visit Plan Review HEP, Manual PT, flexibility, modalities as needed
--- NOTE | 2019-01-13 10:25 | PT.OTN ---
Current Diagnoses Low back pain (01/13/19) Physical Therapy Treatment Note PT-OP-A Visit Information Start: 12/30/18 13:59 Freq: Status: Active Protocol: Document 01/13/19 09:38 EA (Rec: 01/13/19 09:46 EA [id number]) Out-Patient Physical Therapy Visit Information Visit Information Visit Type Treatment Note Visit Start Time 09:00 Visit Stop Time 09:51 Total Visit Minutes 51 Visit Number 3 Number of BUSINESS TECHNOLOGY TEACHER Visits 0 PT-OP-B Current Condition Start: 12/30/18 13:59 Freq: Status: Active Protocol: Document 12/30/18 13:59 EA (Rec: 12/30/18 14:30 EA [id number]) Current Condition History of Current Condition Onset Date 12/26/18 Current Complaints Left low back and upper gluteals pain History of Current Condition Pt reports no recent injury he could relate to current condition; states he always had bad posture. Pt went to ER on 12/27/18 due to severe pain and was given muscle relaxant and underwent lumbar X-rays. He reports followed up check up yesterday with a probable disc heniation diagnosis. 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 Prior Treatments and Tests None reported Recent lumbar X-rays Future Testing and Treatments Planned None reported Treatment Goals Patient/Caregiver Goals 1. Complete pain relief 2. 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 Baseline Function- Recreation/Hobbies Sedentary lifestyle with once a week of yoga exercises Current Functional Impairments (Reported) Functional Limitations- ADL's Independent with moderate difficulty in all functional mobility. Functional Limitations- Mobility/Gait Unable to walk > a mile due to pain Functional Limitations- Work/School Moderate difficulty in all tasks that requires bending, lifting and twisting Functional Limitations- Recreation/ Unable to get back to Yoga Hobbies exercises yet. Personal Factors Other Personal Factors That May Effect Bipolar disorder Therapy/Recovery PT-OP-C Subjective Start: 12/30/18 13:59 Freq: Status: Active Protocol: Document 01/13/19 09:38 EA (Rec: 01/13/19 09:46 EA [id number]) OP-PT Subjective Patient Comments Patient Comments It's getting better; states would like to know sitting position as he sits all the time at work. PT-OP-F Manual Assessment Start: 12/30/18 13:59 Freq: Status: Active Protocol: Document 12/30/18 15:15 EA (Rec: 12/30/18 15:33 EA [id number]) Manual Assessments Soft Tissue Assessment Soft Tissue Mobility Assessment Tightness to paralumabars, QL, hip ER PT-OP-G Mobility & Gait Start: 12/30/18 13:59 Freq: Status: Active Protocol: Document 12/30/18 15:15 EA (Rec: 12/30/18 15:33 EA [id number]) OP Mobility Evaluation Bed Mobility Rolling Mod difficulty Supine to and from Sit Mod difficulty Transfers Sit to Stand Mode difficulty OP Gait Assessment Gait Gait Assistance Required: Independent Assistive Devices Assistive Device None Comments Gait Comments Stiffed pelvis with limited pelvic vertical displacement with slight antalgic PT-OP-H Neuro Start: 12/30/18 13:59 Freq: Status: Active Protocol: Document 12/30/18 15:15 EA (Rec: 12/30/18 15:33 EA [id number]) Deep Tendon Reflex & Clonus Assessment Deep Tendon Reflex Bilateral Achilles Deep Tendon Reflex 2+ Normal Bilateral Patellar Deep Tendon Reflex 2+ Normal PT-OP-J Posture/Palpation/Skin Start: 12/30/18 13:59 Freq: Status: Active Protocol: Document 12/30/18 15:15 EA (Rec: 12/30/18 15:33 EA [id number]) Posture Evaluation Comments Posture Comments Right hip lat shidted to right with lateral lumbar side bend to left. Palpation Assessment Location One Palpation Location Paralumbars, QL, upper/mid gluteals Palpation Findings Spasm Muscle Guarding PT-OP-K Range of Motion Start: 12/30/18 13:59 Freq: Status: Active Protocol: Document 12/30/18 15:15 EA (Rec: 12/30/18 15:33 EA [id number]) Lumbar Spine Range of Motion Lumbar Spine Active Percentage Testing Position Standing Flexion 50 Extension 75 Rotation Left 55 Rotation Right 50 Lateral Flexion Left 65 Lateral Flexion Right 50 ROM Limitations Soft Tissue Tightness Pain PT-OP-L Special Tests Start: 12/30/18 13:59 Freq: Status: Active Protocol: Document 12/30/18 15:15 EA (Rec: 12/30/18 15:33 EA [id number]) Special Tests Lumbar Spine Special Tests Prone Instability Test Test Results - Slump Test Results - Straight Leg Raise Test Results Left + PT-OP-M Strength Start: 12/30/18 13:59 Freq: Status: Active Protocol: Document 12/30/18 15:15 EA (Rec: 12/30/18 15:33 EA [id number]) Trunk Strength Trunk Manual Muscle Testing Testing Position Sitting Flexion 4- Good- Extension 4- Good- Rotation Left 4- Good- Rotation Right 4- Good- Lateral Flexion Left 4- Good- Lateral Flexion Right 4- Good- Comments Pain limits MMT Hip Strength Hip Manual Muscle Testing Left Reason Not Measured WFL Knee Strength Knee Manual Muscle Testing Left Reason Not Measured WFL Ankle/Foot Strength Ankle and Foot Manual Muscle Testing Left Reason Not Measured WFL Toe Strength Toe Manual Muscle Testing Great Toe Reason Not Measured WFL PT-OP-Q Treatments Start: 12/30/18 13:59 Freq: Status: Active Protocol: Document 01/13/19 09:38 EA (Rec: 01/13/19 09:46 EA [id number]) Cardio Equipment Recumbent Stepper (Sci-Fit) Duration (Minutes) 5 Resistance 2 Seat Position 10 Therapeutic Exercises Supine Exercises 3 Supine Exercise Name Bridge with HIP isomet ABD Resistance GTB Reps/Minutes x 15 reps x 2 2 Supine Exercise Name Low trunk stretch Reps/Minutes x 15 secs x 5 reps each sides 1 Supine Exercise Name SKTC Reps/Minutes x30SH x 2 Piriformis Stretch Supine Exercise Name Figure-4, Ucub-ka-isoqjlpl chest Side bilateral Other Exercises 2 Other Exercise Name Blanco pose: side bending to right Reps/Minutes x 30SH x 2 1 Other Exercise Name Quaroped: camel and cat Reps/Minutes x 10 reps Manual Therapy Treatment Soft Tissue Mobilization Piriformis Body Location B Piriformis Mobilization Type Strumming Sustained Pressure Body Position Prone Paraspinals Body Location B Lumbar paraspinals Mobilization Type Strumming Sustained Pressure Body Position Prone Joint Mobilizations Lumbar Spine Joint L1-5 Direction P->A Grade II Body Position Prone PT-OP-R Modalities Start: 12/30/18 13:59 Freq: Status: Active Protocol: Document 01/13/19 09:38 EA (Rec: 01/13/19 09:46 EA [id number]) Electric Stimulation Electric Stimulation Interferential Current (IFC) Body Location left paralumabars and upper gluteals Duration (Minutes) 15 Intensity 16 Contraction Type Normal Patient Position Supine Combined With Heat/Cold Cold Pack PT-OP-T Assessment and Plan Start: 12/30/18 13:59 Freq: Status: Active Protocol: Document 01/13/19 09:38 EA (Rec: 01/13/19 09:46 EA [id number]) Physical Therapy Assessment Assessment Summary Assessment Improved mobility noted and less tenderness to lumbar region during manual PT. Educated sitting position at work and both feet supported with foot stool. Physical Therapy Plan Next Visit Focus/Plan Next Note Type Treatment Note Next Visit Plan Review HEP, Manual PT, flexibility, modalities as needed
--- NOTE | 2019-01-20 16:00 | PT.OTN ---
Current Diagnoses Low back pain (01/20/19) Physical Therapy Treatment Note PT-OP-A Visit Information Start: 12/30/18 13:59 Freq: Status: Active Protocol: Document 01/20/19 09:00 AMB (Rec: 01/20/19 16:00 AMB [email or web address]) Out-Patient Physical Therapy Visit Information Visit Information Visit Type Treatment Note Visit Start Time 09:00 Visit Stop Time 09:53 Total Visit Minutes 53 Visit Number 4 Number of [employer]INEER Visits 0 PT-OP-B Current Condition Start: 12/30/18 13:59 Freq: Status: Active Protocol: Document 12/30/18 13:59 EA (Rec: 12/30/18 14:30 EA [id number]) Current Condition History of Current Condition Onset Date 12/26/18 Current Complaints Left low back and upper gluteals pain History of Current Condition Pt reports no recent injury he could relate to current condition; states he always had bad posture. Pt went to ER on 12/27/18 due to severe pain and was given muscle relaxant and underwent lumbar X-rays. He reports followed up check up yesterday with a probable disc heniation diagnosis. 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 Prior Treatments and Tests None reported Recent lumbar X-rays Future Testing and Treatments Planned None reported Treatment Goals Patient/Caregiver Goals 1. Complete pain relief 2. 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 Baseline Function- Recreation/Hobbies Sedentary lifestyle with once a week of yoga exercises Current Functional Impairments (Reported) Functional Limitations- ADL's Independent with moderate difficulty in all functional mobility. Functional Limitations- Mobility/Gait Unable to walk > a mile due to pain Functional Limitations- Work/School Moderate difficulty in all tasks that requires bending, lifting and twisting Functional Limitations- Recreation/ Unable to get back to Yoga Hobbies exercises yet. Personal Factors Other Personal Factors That May Effect Bipolar disorder Therapy/Recovery PT-OP-C Subjective Start: 12/30/18 13:59 Freq: Status: Active Protocol: Document 01/20/19 09:00 AMB (Rec: 01/20/19 16:00 AMB [email or web address]) OP-PT Subjective Patient Comments Patient Comments Pt states he feels he is getting close to his baseline of chronic low back pain. He did have shooting pain yesterday when he was walking his dog though. PT-OP-F Manual Assessment Start: 12/30/18 13:59 Freq: Status: Active Protocol: Document 12/30/18 15:15 EA (Rec: 12/30/18 15:33 EA [id number]) Manual Assessments Soft Tissue Assessment Soft Tissue Mobility Assessment Tightness to paralumabars, QL, hip ER PT-OP-G Mobility & Gait Start: 12/30/18 13:59 Freq: Status: Active Protocol: Document 12/30/18 15:15 EA (Rec: 12/30/18 15:33 EA [id number]) OP Mobility Evaluation Bed Mobility Rolling Mod difficulty Supine to and from Sit Mod difficulty Transfers Sit to Stand Mode difficulty OP Gait Assessment Gait Gait Assistance Required: Independent Assistive Devices Assistive Device None Comments Gait Comments Stiffed pelvis with limited pelvic vertical displacement with slight antalgic PT-OP-H Neuro Start: 12/30/18 13:59 Freq: Status: Active Protocol: Document 12/30/18 15:15 EA (Rec: 12/30/18 15:33 EA [id number]) Deep Tendon Reflex & Clonus Assessment Deep Tendon Reflex Bilateral Achilles Deep Tendon Reflex 2+ Normal Bilateral Patellar Deep Tendon Reflex 2+ Normal PT-OP-J Posture/Palpation/Skin Start: 12/30/18 13:59 Freq: Status: Active Protocol: Document 12/30/18 15:15 EA (Rec: 12/30/18 15:33 EA [id number]) Posture Evaluation Comments Posture Comments Right hip lat shidted to right with lateral lumbar side bend to left. Palpation Assessment Location One Palpation Location Paralumbars, QL, upper/mid gluteals Palpation Findings Spasm,Muscle Guarding PT-OP-K Range of Motion Start: 12/30/18 13:59 Freq: Status: Active Protocol: Document 12/30/18 15:15 EA (Rec: 12/30/18 15:33 EA [id number]) Lumbar Spine Range of Motion Lumbar Spine Active Percentage Testing Position Standing Flexion 50 Extension 75 Rotation Left 55 Rotation Right 50 Lateral Flexion Left 65 Lateral Flexion Right 50 ROM Limitations Soft Tissue Tightness,Pain PT-OP-L Special Tests Start: 12/30/18 13:59 Freq: Status: Active Protocol: Document 12/30/18 15:15 EA (Rec: 12/30/18 15:33 EA [id number]) Special Tests Lumbar Spine Special Tests Prone Instability Test Test Results - Slump Test Results - Straight Leg Raise Test Results Left + PT-OP-M Strength Start: 12/30/18 13:59 Freq: Status: Active Protocol: Document 12/30/18 15:15 EA (Rec: 12/30/18 15:33 EA [id number]) Trunk Strength Trunk Manual Muscle Testing Testing Position Sitting Flexion 4- Good- Extension 4- Good- Rotation Left 4- Good- Rotation Right 4- Good- Lateral Flexion Left 4- Good- Lateral Flexion Right 4- Good- Comments Pain limits MMT Hip Strength Hip Manual Muscle Testing Left Reason Not Measured WFL Knee Strength Knee Manual Muscle Testing Left Reason Not Measured WFL Ankle/Foot Strength Ankle and Foot Manual Muscle Testing Left Reason Not Measured WFL Toe Strength Toe Manual Muscle Testing Great Toe Reason Not Measured WFL PT-OP-Q Treatments Start: 12/30/18 13:59 Freq: Status: Active Protocol: Document 01/20/19 09:00 AMB (Rec: 01/20/19 16:00 AMB [email or web address]) Cardio Equipment Recumbent Stepper (Sci-Fit) Duration (Minutes) 5 Resistance 4 Seat Position 10 Therapeutic Exercises Supine Exercises 4 Supine Exercise Name hip flexor stretch Reps/Minutes 30x2 1 Supine Exercise Name SKTC Reps/Minutes x30SH x 2 Piriformis Stretch Supine Exercise Name Figure-4, Gcqo-nm-hgzagzhy chest Side bilateral Other Exercises 2 Other Exercise Name Blanco pose: side bending to right Reps/Minutes x 30SH x 2 1 Other Exercise Name Quaroped: camel and cat Reps/Minutes x 10 reps Manual Therapy Treatment Soft Tissue Mobilization Paraspinals Body Location B Lumbar paraspinals Mobilization Type Strumming,Sustained Pressure Body Position Prone Joint Mobilizations Lumbar Spine Joint L1-5 Direction P->A Grade II Body Position Prone PT-OP-R Modalities Start: 12/30/18 13:59 Freq: Status: Active Protocol: Document 01/20/19 09:00 AMB (Rec: 01/20/19 16:00 AMB [email or web address]) Electric Stimulation Electric Stimulation Interferential Current (IFC) Body Location left paralumabars and upper gluteals Duration (Minutes) 15 Intensity 16 Contraction Type Normal Patient Position Supine Combined With Heat/Cold Cold Pack PT-OP-T Assessment and Plan Start: 12/30/18 13:59 Freq: Status: Active Protocol: Document 01/20/19 09:00 AMB (Rec: 01/20/19 16:00 AMB [email or web address]) Physical Therapy Assessment Assessment Summary Assessment Pt is concerned about $50 copay so encouraged to continue with exercises over the next 2 weeks and then re- evaluate need for PT at the next visit. While pt is feeling better, he continues to have chronic low back pain. Physical Therapy Plan Next Visit Focus/Plan Next Note Type Treatment Note Next Visit Plan Review HEP, Manual PT, flexibility, modalities as needed
--- NOTE | 2019-02-03 07:48 | PT.OPDS ---
Current Diagnoses Low back pain (01/20/19) Visit Care Team Role Provider Type Chris Tejeda MD Attending Provider Physician Primary Care Provider Specialty: Family Practice Address: [address] [place] [address], [facility] Email: [email or web address] Visit Number Visit Number 4 Discharge Summary PT-OP-B Current Condition Start: 12/30/18 13:59 Freq: Status: Active Protocol: Document 12/30/18 13:59 EA (Rec: 12/30/18 14:30 EA [id number]) Current Condition History of Current Condition Onset Date 12/26/18 Current Complaints Left low back and upper gluteals pain History of Current Condition Pt reports no recent injury he could relate to current condition; states he always had bad posture. Pt went to ER on 12/27/18 due to severe pain and was given muscle relaxant and underwent lumbar X-rays. He reports followed up check up yesterday with a probable disc heniation diagnosis. 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 Prior Treatments and Tests None reported Recent lumbar X-rays Future Testing and Treatments Planned None reported Treatment Goals Patient/Caregiver Goals 1. Complete pain relief 2. 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 Baseline Function- Recreation/Hobbies Sedentary lifestyle with once a week of yoga exercises Current Functional Impairments (Reported) Functional Limitations- ADL's Independent with moderate difficulty in all functional mobility. Functional Limitations- Mobility/Gait Unable to walk > a mile due to pain Functional Limitations- Work/School Moderate difficulty in all tasks that requires bending, lifting and twisting Functional Limitations- Recreation/ Unable to get back to Yoga Hobbies exercises yet. Personal Factors Other Personal Factors That May Effect Bipolar disorder Therapy/Recovery PT-OP-C Subjective Start: 12/30/18 13:59 Freq: Status: Active Protocol: Document 01/20/19 09:00 AMB (Rec: 01/20/19 16:00 AMB [email or web address]) OP-PT Subjective Patient Comments Patient Comments Pt states he feels he is getting close to his baseline of chronic low back pain. He did have shooting pain yesterday when he was walking his dog though. PT-OP-F Manual Assessment Start: 12/30/18 13:59 Freq: Status: Active Protocol: Document 12/30/18 15:15 EA (Rec: 12/30/18 15:33 EA [id number]) Manual Assessments Soft Tissue Assessment Soft Tissue Mobility Assessment Tightness to paralumabars, QL, hip ER PT-OP-G Mobility & Gait Start: 12/30/18 13:59 Freq: Status: Active Protocol: Document 12/30/18 15:15 EA (Rec: 12/30/18 15:33 EA [id number]) OP Mobility Evaluation Bed Mobility Rolling Mod difficulty Supine to and from Sit Mod difficulty Transfers Sit to Stand Mode difficulty OP Gait Assessment Gait Gait Assistance Required: Independent Assistive Devices Assistive Device None Comments Gait Comments Stiffed pelvis with limited pelvic vertical displacement with slight antalgic PT-OP-H Neuro Start: 12/30/18 13:59 Freq: Status: Active Protocol: Document 12/30/18 15:15 EA (Rec: 12/30/18 15:33 EA [id number]) Deep Tendon Reflex & Clonus Assessment Deep Tendon Reflex Bilateral Achilles Deep Tendon Reflex 2+ Normal Bilateral Patellar Deep Tendon Reflex 2+ Normal PT-OP-J Posture/Palpation/Skin Start: 12/30/18 13:59 Freq: Status: Active Protocol: Document 12/30/18 15:15 EA (Rec: 12/30/18 15:33 EA [id number]) Posture Evaluation Comments Posture Comments Right hip lat shidted to right with lateral lumbar side bend to left. Palpation Assessment Location One Palpation Location Paralumbars, QL, upper/mid gluteals Palpation Findings Spasm,Muscle Guarding PT-OP-K Range of Motion Start: 12/30/18 13:59 Freq: Status: Active Protocol: Document 12/30/18 15:15 EA (Rec: 12/30/18 15:33 EA [id number]) Lumbar Spine Range of Motion Lumbar Spine Active Percentage Testing Position Standing Flexion 50 Extension 75 Rotation Left 55 Rotation Right 50 Lateral Flexion Left 65 Lateral Flexion Right 50 ROM Limitations Soft Tissue Tightness,Pain PT-OP-L Special Tests Start: 12/30/18 13:59 Freq: Status: Active Protocol: Document 12/30/18 15:15 EA (Rec: 12/30/18 15:33 EA [id number]) Special Tests Lumbar Spine Special Tests Prone Instability Test Test Results - Slump Test Results - Straight Leg Raise Test Results Left + PT-OP-M Strength Start: 12/30/18 13:59 Freq: Status: Active Protocol: Document 12/30/18 15:15 EA (Rec: 12/30/18 15:33 EA [id number]) Trunk Strength Trunk Manual Muscle Testing Testing Position Sitting Flexion 4- Good- Extension 4- Good- Rotation Left 4- Good- Rotation Right 4- Good- Lateral Flexion Left 4- Good- Lateral Flexion Right 4- Good- Comments Pain limits MMT Hip Strength Hip Manual Muscle Testing Left Reason Not Measured WFL Knee Strength Knee Manual Muscle Testing Left Reason Not Measured WFL Ankle/Foot Strength Ankle and Foot Manual Muscle Testing Left Reason Not Measured WFL Toe Strength Toe Manual Muscle Testing Great Toe Reason Not Measured WFL PT-OP-T Assessment and Plan Start: 12/30/18 13:59 Freq: Status: Active Protocol: Document 02/03/19 07:46 AMB (Rec: 02/03/19 07:48 AMB [email or web address]) Physical Therapy Assessment Goals Four Impairment No HEP in place Dry Roller Goal (LTG) Patient will demonstrate indep progressive HEP LTG Duration MET Three Impairment OSWESTRY low back disability score of 28/50 Skilled Nursing Goal (LTG) Patient will have OSWESTRY score of less than 10/50 to enhance quality of life LTG Duration 5 wks Two Impairment Impaired lifting Dry Roller Goal (LTG) Patient will lift more than 15 # with proper body mechanics with no increase of pain to perform daily task LTG Duration PROGRESS MADE One Impairment Decrased tolerance to standing Dry Roller Goal (LTG) Patient will stand up more than 30 mins without increase of symptoms LTG Duration PROGRESS MADE Physical Therapy Plan Discharge Physical Therapy Discharge Comments At his last appointment, pt was encouraged to come in one more time to follow up, but decided that his copay was quite high and that he is feeling back to baseline, still has some back pain but he is used to the level that it is at so he requests d/c at this time.
== END 2019-02-04 17:15 | disposition home or self-care (01) ==
LOC: PHYS 09:00
PROVIDERS: PCP Family Medicine; Visit Provider Family Medicine
DX: M54.5 Low back pain (principal)
CPT/HCPCS: 97014; 97110; 97140; 97162; 97535; G0283

== ENCOUNTER → 2019-01-26 07:31 | Outpatient (CLI) | payer OTHER, SELFPAY ==
[2019-01-26 08:20] LABS: BUN Creatinine Ratio 23.8 (6-22); Blood Urea Nitrogen 19 mg/dL (9-20); Calcium 8.9 mg/dL (8.4-10.2); Carbon Dioxide 29 mmol/L (22-32); Chloride 107 mmol/L (98-107); Cholesterol 185 mg/dL (140-199); Estimated Glomerular Filt Rate > 60.0 mL/min (>60); Glucose 115 mg/dL (70-100); HDL Cholesterol 41 mg/dL (40-60); HEMOLYSIS < 15 (0-50); LDL Cholesterol Calculated 96 mg/dL (<100); Potassium 4.1 mmol/L (3.4-5.1); Sodium 142 mmol/L (137-145); Triglycerides 240 mg/dL (35-150)
[2019-01-26 09:04] LABS: Lithium < 0.2 mmol/L (0.6-1.2)
== END ==
PROVIDERS: PCP Family Medicine; Visit Provider Psychiatry & Neurology Psychiatry
DX: F31.9 Bipolar disorder, unspecified (principal)
CPT/HCPCS: 36415; 80048; 80061; 80178

== ENCOUNTER → 2019-02-05 12:19 | Outpatient (CLI) | payer OTHER, SELFPAY ==
[2019-02-05 13:36] LABS: Lithium < 0.2 mmol/L (0.6-1.2)
[2019-02-05 13:44] LABS: Alanine Aminotransferase 23 IU/L (21-72); Albumin 4.8 g/dL (3.5-5.0); Albumin Globulin Ratio 1.5 (1.0-2.8); Alkaline Phosphatase 121 U/L (38-126); Aspartate Aminotransferase 30 IU/L (17-59); BUN Creatinine Ratio 18.9 (6-22); Bilirubin Total 0.5 mg/dL (0.2-1.3); Blood Urea Nitrogen 17 mg/dL (9-20); Calcium 10.2 mg/dL (8.4-10.2); Carbon Dioxide 27 mmol/L (22-32); Chloride 101 mmol/L (98-107); Cholesterol 250 mg/dL (140-199); Estimated Glomerular Filt Rate > 60.0 mL/min (>60); Globulin 3.3 g/dL (1.7-4.1); Glucose 92 mg/dL (70-100); HDL Cholesterol 46 mg/dL (40-60); HEMOLYSIS < 15 (0-50); LDL Cholesterol Calculated 175 mg/dL (<100); Potassium 5.1 mmol/L (3.4-5.1); Sodium 141 mmol/L (137-145); Total Protein 8.1 g/dL (6.3-8.2); Triglycerides 145 mg/dL (35-150)
== END ==
PROVIDERS: PCP Family Medicine; Visit Provider Psychiatry & Neurology Psychiatry
DX: F31.73 Bipolar disorder, in partial remission, most recent episode manic (principal)
CPT/HCPCS: 36415; 80053; 80061; 80178; 84403

== ENCOUNTER → 2019-03-04 19:12 | Outpatient (CLI) | payer OTHER, SELFPAY | PROVIDERS: PCP Family Medicine | DX: Z23 Encounter for immunization (principal) | CPT/HCPCS: 90471; 90686 ==

== ENCOUNTER → 2019-07-09 07:30 | Outpatient (CLI) | payer OTHER, SELFPAY ==
[2019-07-09 08:56] LABS: Alanine Aminotransferase 25 IU/L (<50); Albumin 4.2 g/dL (3.5-5.0); Albumin Globulin Ratio 1.2 (1.0-2.8); Alkaline Phosphatase 112 U/L (38-126); Aspartate Aminotransferase 31 IU/L (17-59); BUN Creatinine Ratio 22.5 (6-22); Bilirubin Total 0.2 mg/dL (0.2-1.3); Blood Urea Nitrogen 18 mg/dL (9-20); Calcium 9.3 mg/dL (8.4-10.2); Carbon Dioxide 24 mmol/L (22-32); Chloride 107 mmol/L (98-107); Cholesterol 201 mg/dL (140-199); Estimated Glomerular Filt Rate > 60.0 mL/min (>60); Globulin 3.4 g/dL (1.7-4.1); Glucose 121 mg/dL (70-100); HDL Cholesterol 30 mg/dL (40-60); HEMOLYSIS < 15 (0-50); LDL Cholesterol Calculated 131 mg/dL (<100); Lithium 0.2 mmol/L (0.6-1.2); Sodium 143 mmol/L (137-145); Total Protein 7.6 g/dL (6.3-8.2); Triglycerides 202 mg/dL (35-150)
[2019-07-09 08:58] LABS: Hemoglobin A1C% w Est Avg Glu 5.3 % (4.0-6.0)
[2019-07-09 09:25] LABS: Testosterone 145 ng/dL (132-813)
[2019-07-09 09:32] LABS: Estradiol, Total 338.5 pg/mL
== END ==
PROVIDERS: PCP Family Medicine; Referring Provider Psychiatry & Neurology Psychiatry; Visit Provider Psychiatry & Neurology Psychiatry
DX: F31.30 Bipolar disorder, current episode depressed, mild or moderate severity, unspecified (principal); F31.9 Bipolar disorder, unspecified; Z79.899 Other long term (current) drug therapy
CPT/HCPCS: 36415; 80053; 80061; 80178; 82670; 83036; 84403

== ENCOUNTER → 2020-01-18 07:26 | Outpatient (CLI) | payer OTHER, SELFPAY ==
[2020-01-18 09:46] LABS: Alanine Aminotransferase 30 IU/L (<50); Albumin 4.5 g/dL (3.5-5.0); Albumin Globulin Ratio 1.4 (1.0-2.8); Alkaline Phosphatase 104 U/L (38-126); Aspartate Aminotransferase 28 IU/L (17-59); BUN Creatinine Ratio 16.5 (6-22); Bilirubin Total 0.5 mg/dL (0.2-1.3); Blood Urea Nitrogen 13 mg/dL (9-20); Calcium 9.4 mg/dL (8.4-10.2); Carbon Dioxide 30 mmol/L (22-32); Chloride 104 mmol/L (98-107); Estimated Glomerular Filt Rate > 60.0 mL/min (>60); Globulin 3.2 g/dL (1.7-4.1); Glucose 113 mg/dL (70-100); HEMOLYSIS < 15 (0-50); Potassium 4.6 mmol/L (3.4-5.1); Sodium 140 mmol/L (137-145); Total Protein 7.7 g/dL (6.3-8.2)
[2020-01-18 10:11] LABS: Lithium 0.3 mmol/L (0.6-1.2)
[2020-01-18 10:32] LABS: Free T4, Direct Thyroxine 0.94 ng/dL (0.78-2.19)
== END ==
PROVIDERS: PCP Family Medicine; Referring Provider Psychiatry & Neurology Psychiatry; Visit Provider Psychiatry & Neurology Psychiatry
DX: F31.73 Bipolar disorder, in partial remission, most recent episode manic (principal)
CPT/HCPCS: 36415; 80053; 80178; 84439; 84443

== ENCOUNTER → 2020-09-26 11:42 | Outpatient (CLI) | payer OTHER, MEDICAID, SELFPAY ==
[2020-09-26 12:17] LABS: Add Manual Diff / Slide Review NO; Basophils Absolute Auto 100 /uL (0-100); Basophils Percent Auto 0.6 % (0-2); Eosinophils Absolute Auto 100 /uL (0-450); Eosinophils Percent Auto 1.7 % (2-4); Hematocrit 43.9 % (41-53); Lymphocytes Absolute Auto 2000 /uL (1100-4500); Lymphocytes Percent Auto 24.8 % (25-40); Mean Corpuscular HGB Conc 34.1 % (30-36); Mean Corpuscular Hemoglobin 28.8 PG (26-34); Mean Corpuscular Volume 84.5 fL (80-100); Monocytes Absolute Auto 700 /uL (0-900); Monocytes Percent Auto 8.3 % (3-14); Neutrophils Absolute Auto 5200 /uL (1500-7000); Neutrophils Percent Auto 64.6 % (50-75); Platelet Count 251 X10^3/uL (150-400); Red Cell Distribution Width 13.9 % (11.6-14.8)
[2020-09-26 12:42] LABS: Alanine Aminotransferase 20 IU/L (<50); Albumin 4.3 g/dL (3.5-5.0); Albumin Globulin Ratio 1.4 (1.0-2.8); Alkaline Phosphatase 105 U/L (38-126); Aspartate Aminotransferase 28 IU/L (17-59); BUN Creatinine Ratio 18.5 (6-22); Bilirubin Total 0.3 mg/dL (0.2-1.3); Blood Urea Nitrogen 15 mg/dL (9-20); Calcium 9.7 mg/dL (8.4-10.2); Carbon Dioxide 27 mmol/L (22-32); Chloride 103 mmol/L (98-107); Estimated Glomerular Filt Rate > 60.0 mL/min (>60); Globulin 3.1 g/dL (1.7-4.1); Glucose 109 mg/dL (70-100); HEMOLYSIS < 15 (0-50); Potassium 4.5 mmol/L (3.4-5.1); Sodium 139 mmol/L (137-145); Total Protein 7.4 g/dL (6.3-8.2)
[2020-09-26 13:04] LABS: Estradiol, Total 77.1 pg/mL
[2020-09-26 13:14] LABS: Thyroid Stimulating Hormone 1.88 uIU/mL (0.47-4.68)
[2020-09-26 13:15] LABS: Testosterone 190 ng/dL (132-813)
== END ==
PROVIDERS: PCP Family Medicine; Referring Provider Psychiatry & Neurology Psychiatry; Visit Provider Psychiatry & Neurology Psychiatry
DX: F31.32 Bipolar disorder, current episode depressed, moderate (principal); Z51.81 Encounter for therapeutic drug level monitoring; E34.9 Endocrine disorder, unspecified
CPT/HCPCS: 36415; 80053; 82670; 84403; 84443; 85025

== ENCOUNTER → 2021-03-07 10:13 | Outpatient (CLI) | payer OTHER, MEDICAID, SELFPAY ==
[2021-03-07 11:52] LABS: Estradiol, Total 48.9 pg/mL
[2021-03-07 14:25] LABS: Testosterone 37.4 ng/dL (132-813)
== END ==
PROVIDERS: PCP Registered Nurse Diabetes Educator; Referring Provider Psychiatry & Neurology Psychiatry; Visit Provider Psychiatry & Neurology Psychiatry
DX: E34.9 Endocrine disorder, unspecified (principal); F41.1 Generalized anxiety disorder; F31.32 Bipolar disorder, current episode depressed, moderate; F12.10 Cannabis abuse, uncomplicated
CPT/HCPCS: 36415; 82670; 84403; 90837

== ENCOUNTER → 2023-07-01 17:54 | Outpatient (CLI) | payer OTHER, MEDICAID, SELFPAY | PROVIDERS: PCP Registered Nurse Diabetes Educator; Visit Provider Registered Nurse | DX: T14.8XXA Other injury of unspecified body region, initial encounter (principal) | CPT/HCPCS: 87070; 87075; 87205 ==

== ENCOUNTER → 2023-07-18 11:21 | Outpatient (CLI) | payer OTHER, MEDICAID, SELFPAY ==
--- NOTE | 2023-07-18 11:23 | DI.MRI.S_ITS ---
PROCEDURE: MR PELIS WO/W CON INDICATIONS: perirectal abscess TECHNIQUE: Coronal HASTE through the pelvis, oblique axial and coronal T1 and T2 fast spin echo through the anal canal. After the administration of contrast, oblique axial and coronal VIBE or T1 fast spin echo with fast saturation through the anal canal. COMPARISON: None. FINDINGS: Image quality: Diagnostic Lower abdomen: Unremarkable. No small bowel obstruction or pathologic ascites. Bladder: Under distended Reproductive organs: Prostate is not well evaluated on this study. Rectum: The rectum is unremarkable. Arising from the 3 o'clock position at the anal verge, there is a fistula tract, extending from under the sphincter, leading to along in thin collection extending to the skin at the perineum measuring 6.7 x 0.8 cm. There is associated surrounding fat stranding. Vessels and lymph nodes: No aneurysmal vessel. No pathologic lymphadenopathy by size criteria. There are prominent pelvic and inguinal lymph nodes, that may be reactive in this clinical setting. Pelvic wall: Unremarkable Bones: No acute or suspicious osseous finding. IMPRESSION: Perianal fistula, with tract under the sphincter complex at the 3 o'clock position of the anal verge, leading to a long and thin fluid collection in the left perineum that communicates to the skin surface. There is associated subcutaneous inflammatory edema and enhancement. Other findings as above. Dictated by: Orion Palacios M.D. on 07/18/2023 at 14:43 Approved by: Orion Palacios M.D. on 07/18/2023 at 14:49
== END ==
PROVIDERS: Referring Provider Surgery; Visit Provider Surgery
DX: K60.3 Anal fistula (principal)
CPT/HCPCS: 72197; A9579

== ENCOUNTER 2023-07-29 11:52 | Day surgery (SDC) | payer OTHER, MEDICAID, SELFPAY ==
[2023-07-25 08:22] VITALS: BMI 27.6
[2023-07-29 12:11] VITALS: BMI 28.1
[2023-07-29] MEDS: LACTATED RINGERS 1,000 ML 42 ML IV (12:26)
[2023-07-29 12:27] VITALS: BP 136/85; PULSE 81; RESP 18; TEMP 36.1; O2SAT 98
--- NOTE | 2023-07-29 13:20 | PM.PREOP ---
Pre-operative Note COVID-19 COVID-19 status: Not tested Interval Note History & Physical reviewed/Exam performed by Physician: Yes Changes to H&P: Yes H&P completed within 30 days and has changed as indicated here:: The pain and swelling have decreased but there is persistent drainage suggesting it has become a fistula ASA Class (for procedural sedation): III
--- NOTE | 2023-07-29 14:10 | SUR.OPER ---
Prone on padded OR bed, head in foam head support, gel chest rolls, gel pad under knees, pillow under lower legs, toes free of pressure, arms secured on padded arm boards at <90 degrees abduction. Safety belt at thigh.
[2023-07-29] MEDS: BUPIVACAINE LIPOSOME 266 MG/20 ML VIAL INJ (14:15)
--- NOTE | 2023-07-29 14:48 | P.OP_ITS ---
Operative Date/Time/Diagnoses Date of procedure: 07/29/23 Time of procedure: 14:48 Pre-op diagnosis: Perirectal abscess Post-op diagnosis: other ([id number]) Procedure & Clinicians Procedure: Examination under anesthesia and fistulotomy Same procedure as scheduled: Yes Surgeon: Reynaldo Scott Anesthesia Type: General Operative Notes Procedure in detail: The patient is a 27-year-old man presented with a perirectal abscess. When he showed up for surgery the swelling and inflammation had subsided significantly but there was persistent clear drainage. The patient was brought to the operating room and general endotracheal anesthesia was induced. No antibiotics were indicated. Patient was then positioned in the prone oc-knife position and the buttocks were taped to the bed rails. The perineum was prepped and draped in the usual fashion and a time- out was performed. The external opening was noted approximally 5 cm from the anal verge in the left lateral to left anterior position. A digital rectal exam was performed and was normal. The Hill-Choi retractor was used to examine the distal rectum and no abnormalities were seen. Because the external opening was so far from the anal verge a counter incision was created proximally residential to the anal verge with a scalpel. The probe was then passed from the new external opening to the internal opening which was just above the dentate line in the anterior position. Only a small percentage of the sphincter muscle was involved and so a fistulotomy was created using the scalpel and cautery. Exparel was injected into the dermis and anoderm. A Gelfoam roll was placed into the anus. Multiple 4x4s were applied over the wound. EBL: 10 mL Post-operative Condition: stable Disposition: PACU
[2023-07-29 14:50] VITALS: BP 139/80; PULSE 94; RESP 13; TEMP 36.6; O2SAT 99
[2023-07-29 14:55] VITALS: BP 133/76; PULSE 89; RESP 12; TEMP 36.6; O2SAT 98
[2023-07-29 15:05] VITALS: BP 130/81; PULSE 93; RESP 12; TEMP 36.4; O2SAT 98
== END 2023-07-29 15:25 | disposition home or self-care (01) ==
PROVIDERS: Referring Provider Surgery; Visit Provider Surgery
PROC: (CPT 45990; principal; 2023-07-29 14:00)
DX: K60.5 Anorectal fistula (principal)
CPT/HCPCS: 46270; C9290; J1100; J2405; J2704; J3010; J3490

== ENCOUNTER 2024-01-07 20:12 | Emergency (ER) | payer OTHER, MEDICAID, SELFPAY ==
[2024-01-07 20:33] VITALS: BP 150/83; PULSE 108; RESP 14; TEMP 37.7; O2SAT 95; BMI 27.3
--- NOTE | 2024-01-07 22:26 | ED.BACK ---
HPI - Back Pain/Injury General Chief Complaint: Back Pain/Injury Stated Complaint: back and rt sided pain, no known injury Time Seen by Provider: 01/07/24 22:24 Source: patient Mode of arrival: Ambulatory Limitations: no limitations History of Present Illness HPI Narrative: 28-year-old male with history of chronic back pain. Patient states has been worse lately radiating down the right leg, no paresthesias. No saddle anesthesia. Patient has not any numbness tingling or weakness. Patient has not had any fevers. Patient states similar area but worse than typical. 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 They have been taking Tylenol and cyclobenzaprine but with minimal improvement. Patient states no other daily medications currently. No prior surgeries. No known drug allergies. Uses tobacco, occasional alcohol, marijuana but no recreational drugs otherwise. No IV or injection drugs. Patient follows with the residency clinic [facility]. Related Data Previous Rx's Medication Instructions Recorded venlafaxine 150 mg 150 mg PO QAM #30 caps 06/02/23 capsule,extended release 24 hr meloxicam 7.5 mg tablet 7.5 mg PO BID PRN pain #10 tabs 01/07/24 Allergies Allergy/AdvReac Type Severity Reaction Status Date / Time No Known Drug Allergies Allergy Verified 09/03/23 15:55 Review of Systems Review of Systems ROS Unobtainable: All systems reviewed & are unremarkable except as noted in HPI and below Patient History Medical History Endocrine disorder, unspecified Bipolar 2 disorder, major depressive episode Bipolar disorder, unspecified Social History household members: friend(s) Smoking Status: Never smoker second hand exposure: No alcohol intake: current substance use type: marijuana Smoking Status: Never smoker alcohol intake frequency: a few times a month Substance Use Type: marijuana Exam Narrative Exam Narrative: GENERAL: Alert and oriented x three, male in mild distress HEENT: Head normocephalic, atraumatic, EOMI, pupils reactive, face symmetric, moist mucous membranes NECK: Supple, full range of motion CARDIOVASCULAR: Regular rate and rhythm without murmurs, rubs or gallops. RESPIRATORY: Breath sounds equal bilaterally, no wheezes rales or rhonchi. ABDOMEN: Soft, nontender. Normoactive bowel sounds all 4 quadrants. No guarding or rebound, rigidity, no mass : No CVA tenderness BACK: No cervical, thoracic or lumbar vertebral point tenderness. Patient does have some increased discomfort over the piriformis region on the right. Patient has normal range of motion. Patient's gait is normal. Rectal exam is deferred. Muscle strength is 5/5 in lower extremities, discomfort with straight leg raise on the right. DTRs are 2/4 and lower extremities. Dorsalis pedis and tibialis pulses are 2+ and lower extremities. Sensation is intact in the lower extremities. EXTREMITIES: Normal range of motion, no clubbing or edema. Neurovascularly intact NEUROLOGICAL: Cranial nerves II through XII grossly intact. Moving all extremities SKIN: Warm, dry, no petechiae, no rashes or lesions. Initial Vital Signs Initial Vital Signs: Vital Signs Temperature 99.8 F H 01/07/24 20:33 Pulse Rate 108 H 01/07/24 20:33 Respiratory Rate 14 01/07/24 20:33 Blood Pressure 150/83 H 01/07/24 20:33 Pulse Oximetry 95 01/07/24 20:33 Oxygen Delivery Method Room Air 01/07/24 20:33 Course Orders Ordered: Discontinued Medications Ketorolac Tromethamine (Ketorolac 30 Mg/Ml Vial) 30 mg IM NOW ONE Stop: 01/07/24 22:36 Last Admin: 01/07/24 22:49 Dose: 30 mg Documented By: EVON Vital Signs Vital signs: Vital Signs - 8 hr 01/07/24 20:33 01/07/24 22:41 Temperature 99.8 F H Pulse Rate 108 H 83 Respiratory Rate 14 18 Blood Pressure 150/83 H 133/68 Pulse Oximetry 95 95 Oxygen Delivery Method Room Air Room Air MDM - Back Pain/Injury MDM Narrative Medical decision making narrative: 28-year-old individual acute on chronic right low back pain with radiculopathy down the right leg. No new red flag symptoms appreciated today. 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 Patient has been taking Tylenol and Flexeril without much improvement. We will give a dose of Toradol this evening, script for NSAID to take with Tylenol and Flexeril. I encouraged them to follow up if symptoms are persisting may benefit from PT. Discharge Plan Departure Patient Disposition: Home Clinical Impression: Acute exacerbation of chronic low back pain Activity Restrictions/Additional Instructions: Follow up with your physician for recheck if your symptoms are not improving, you may benefit from physical therapy or additional evaluation. You can take Tylenol up to a 1000 mg every 6 hours as needed for pain, continue with your cyclobenzaprine 1 tablet every 8 hours as needed for muscle relaxation. If inadequate for pain you can take meloxicam 1 tablet twice daily as needed. Do not take ibuprofen, naproxen, Aleve or other NSAIDs with this medication. Prescription was sent to [facility] in [place]. Please return for fevers, rapidly worsening symptoms, loss of bowel or bladder control, weakness, loss of sensation or inability to lift or move your leg or other new or concerning changes. Prescriptions: New meloxicam 7.5 mg tablet 7.5 mg PO BID PRN (Reason: pain) Qty: 10 0RF No Action venlafaxine 150 mg capsule,extended release 24hr 150 mg PO QAM Qty: 30 0RF Referrals: Miscellaneous,Doctor, MD [Primary Care Provider] - Stand Alone Forms: Patient Portal/API
[2024-01-07 22:41] VITALS: BP 133/68; PULSE 83; RESP 18; O2SAT 95
[2024-01-07] MEDS: KETOROLAC 30 MG/ML VIAL IM (22:49)
== END 2024-01-07 22:53 | disposition home or self-care (01) ==
PROVIDERS: Emergency Provider Emergency Medicine
DX: M54.50 Low back pain, unspecified (principal)
CPT/HCPCS: 96372; 99283; J1885

== ENCOUNTER 2024-01-30 10:30 | Emergency (ER) | payer OTHER, MEDICAID, SELFPAY ==
[2024-01-30 10:35] VITALS: BP 127/89; PULSE 89; RESP 14; TEMP 36.1; O2SAT 99; BMI 26.6
--- NOTE | 2024-01-30 12:21 | PC.NURSE ---
Pt reports right lower back/mid back pain. Pt states he has taken Extra strength Tylenol and muscle relaxers to help. Pt states he feels he is favoring his left side and feels weaker in his right. Pt reports similar hx a month ago. Pt states he has had to cut back on his work hours because of the pain. Pt states he needs a shot to help his pain.
--- NOTE | 2024-01-30 12:33 | ED_ITS ---
HPI - Back Pain/Injury <YOUSUF Venegas - Last Filed: 01/30/24 12:45> General Chief Complaint: Back Pain/Injury Stated Complaint: Lower right back pain Time Seen by Provider: 01/30/24 11:19 Source: patient History of Present Illness HPI Narrative: 28-year-old male, never smoker, presents to the emergency department with right lower back pain that has been intermittent but persistent over last couple of months. Patient has been seen in the emergency department where he has been prescribed Flexeril and meloxicam. Patient does report that his Toradol injection did help with his symptoms for quite some time, but eventually return s. Patient reports this has not caused the symptoms to go away, but only mitigated his symptoms. Patient denies any saddle anesthesia or inability to stand. 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 Patient has also been following up with [facility] residency. Previous x-rays were negative. Last dose of meloxicam and Flexeril was early this morning. Related Data Previous Rx's Medication Instructions Recorded venlafaxine 150 mg 150 mg PO QAM #30 caps 06/02/23 capsule,extended release 24 hr meloxicam 7.5 mg tablet 7.5 mg PO BID PRN pain #10 tabs 01/07/24 methylprednisolone 4 mg tablets in See Rx Instructions PO .COMPLEX 01/30/24 a dose pack (Medrol (Agustin)) #21 ea Allergies Allergy/AdvReac Type Severity Reaction Status Date / Time No Known Drug Allergies Allergy Verified 01/30/24 10:39 Review of Systems <YOUSUF Venegas - Last Filed: 01/30/24 12:45> Review of Systems Narrative: Narrative: See HPI. GENERAL: Denies chills, fatigue, fever, sweats. HEENT: Denies sinus pain, ear pain, sore throat, difficulty swallowing, dizziness. RESPIRATORY: Denies dyspnea, cough, wheezing, sputum. CARDIOVASCULAR: Denies chest pain, palpitations, edema. GASTROINTESTINAL: Denies nausea, vomiting, abdominal pain, diarrhea, constipation. : Denies dysuria, frequency, incontinence, hematuria, urinary retention, f lank pain. MSK: Denies weakness, joint pain, or bony pain. Endorses right-sided lower back pain. SKIN: Denies rash, skin lesions, or pruritis. NEUROLOGIC: Denies weakness, dizziness, headache, numbness, confusion. PSYCHIATRIC: No concerning psychosocial issues. Patient History <YOUSUF Venegas - Last Filed: 01/30/24 12:45> Medical History Endocrine disorder, unspecified Bipolar 2 disorder, major depressive episode Bipolar disorder, unspecified Social History household members: friend(s) Smoking Status: Never smoker second hand exposure: No alcohol intake: current substance use type: marijuana Smoking Status: Never smoker alcohol intake frequency: a few times a month Substance Use Type: marijuana Exam <YOUSUF Venegas - Last Filed: 01/30/24 12:45> Narrative Exam Narrative: Exam Narrative: GENERAL: This is a well-nourished, well-developed patient, in no acute distress HEAD: Atraumatic. Normocephalic. ENT: Nose without bleeding, purulent drainage. Airway patent. RESPIRATORY: Respiratory rate and effort are normal. MSK: Moves all extremities. Normal range of motion, no clubbing or edema. Neurovascularly intact. NEURO: A&O x 3. SKIN: Warm, dry, no rashes or lesions noted. BACK screen tender helper but free of any obvious external abnormalities. There is no asymmetry, swelling, bruising or wound. There is no paraspinal tenderness or CVA tenderness. SI joints nontender. No pain over spinous processes. No symptoms of cauda equina such as saddle anesthesia. Sensation is grossly intact. ROM is limited due to pain. SLE is negative bilaterally. Reflexes 2-3 at patella and achilles bilaterally. Resistive strengths are within normal limits Gait is normal. Heel toe balance is intact. Initial Vital Signs Initial Vital Signs: Vital Signs Temperature 97 F L 01/30/24 10:35 Pulse Rate 89 01/30/24 10:35 Respiratory Rate 14 01/30/24 10:35 Blood Pressure 127/89 01/30/24 10:35 Pulse Oximetry 99 01/30/24 10:35 Oxygen Delivery Method Room Air 01/30/24 10:35 Reviewed <Clemente Lynch MD - Last Filed: 01/30/24 20:53> Initial Vital Signs Initial Vital Signs: Vital Signs Temperature 97 F L 01/30/24 10:35 Pulse Rate 89 01/30/24 10:35 Respiratory Rate 14 01/30/24 10:35 Blood Pressure 127/89 01/30/24 10:35 Pulse Oximetry 99 01/30/24 10:35 Oxygen Delivery Method Room Air 01/30/24 10:35 Course <YOUSUF Venegas - Last Filed: 01/30/24 12:45> Orders Ordered: Discontinued Medications Ketorolac Tromethamine (Ketorolac 30 Mg/Ml Vial) 30 mg IM NOW ONE Stop: 01/30/24 12:33 Last Admin: 01/30/24 12:39 Dose: 30 mg Documented By: JENNIFER Vital Signs Vital signs: Vital Signs - 8 hr 01/30/24 10:35 Temperature 97 F L Pulse Rate 89 Respiratory Rate 14 Blood Pressure 127/89 Pulse Oximetry 99 Oxygen Delivery Method Room Air <Clemente Lynch MD - Last Filed: 01/30/24 20:53> Orders Ordered: Discontinued Medications Ketorolac Tromethamine (Ketorolac 30 Mg/Ml Vial) 30 mg IM NOW ONE Stop: 01/30/24 12:33 Last Admin: 01/30/24 12:39 Dose: 30 mg Documented By: JENNIFER Vital Signs Vital signs: Vital Signs - 8 hr 01/30/24 10:35 Temperature 97 F L Pulse Rate 89 Respiratory Rate 14 Blood Pressure 127/89 Pulse Oximetry 99 Oxygen Delivery Method Room Air MDM - Back Pain/Injury <YOUSUF Venegas - Last Filed: 01/30/24 12:45> Differential Diagnosis Differential diagnosis: Likely sciatica and strain of lumbar region MDM Narrative Medical decision making narrative: 28-year-old male with right lower back pain. Clinical findings were suggestive of lumbar radiculopathy/right-sided sciatica. As patient has only had minimal relief with NSAIDs and muscle relaxers, will trial a steroid Dosepak. Spent significant amount of time explaining and demonstrating core exercises and lower back stretching exercises that can be done from a supine position. Discussed plan of care and return precautions with patient, verbalized understanding and was agreeable with course of action. Strict instructions that for any loss of control of bowel or bladder or inability to stand, to come to the emergency room immediately. Discharge Plan Departure Patient Disposition: Home Clinical Impression: Strain of lumbar region Qualifiers: Encounter type: subsequent encounter Qualified Code(s): S39.012D - Strain of muscle, fascia and tendon of lower back, subsequent encounter Sciatica Qualifiers: Laterality: right Qualified Code(s): M54.31 - Sciatica, right side Instructions: DI for Low Back Pain, DI for Back Pain With Sciatica, DI for Back Strain or Sprain Activity Restrictions/Additional Instructions: *You have been diagnosed with a right-sided low back strain/sciatica. Please conduct the stretching and core exercises we discussed on a daily basis. Continue using hot or cold compresses and previously prescribed medications. We will trial a steroid Dosepak to see if this helps with your symptoms. DO NOT TAKE ANYMORE MELOXICAM TODAY. You may restart the meloxicam tomorrow evening. As we discussed, recommend a trial of intensive care ambulance paramedic as this may help remedy your symptoms. For worsening symptoms that include loss of control of bowel or bladder or inability to stand, please return to the emergency room immediately. Otherwise, follow up with your family doctor or urgent care as needed *What to do: *Please continue to take your regular medications as directed. [x ] New medication prescriptions sent to your pharmacy: [[facility]] [ ] New medication written as a paper prescription [ ] No new medications given *Please follow up with your primary care provider in 2-3 days, call for an appointment. Let them know you were seen in the Emergency Department and that we ask that you be seen in follow up. We will electronically transmit a record of today's note if your PCP is in our system *If you do not have a primary care provider please contact the [facility] Resource line at [phone]. They will ask some questions about your medical history and help get you set up with a doctor in the community. ? Return to ER if you should have any new, worsening or concerning symptoms, such as worsening pain, severe headache, confusion, chest pain, difficulty breathing, fever greater than 101 F, shaking chills, persistent vomiting to the point that you cannot drink fluids, or other new or worsening symptoms. Prescriptions: New methylprednisolone [Medrol (Agustin)] 4 mg tablets,dose pack See Rx Instructions .ROUTE .COMPLEX Qty: 21 0RF Rx Instructions: for 6 days No Action venlafaxine 150 mg capsule,extended release 24hr 150 mg PO QAM Qty: 30 0RF meloxicam 7.5 mg tablet 7.5 mg PO BID PRN (Reason: pain) Qty: 10 0RF Stand Alone Forms: Patient Portal/API ED Sign-out <Clemente Lynch MD - Last Filed: 01/30/24 20:53> Cosign ED Attending Cosignature Attestation: I was immediately available in the department for consultation. This documentation has been reviewed. Supervised by Clemente Lynch MD
[2024-01-30] MEDS: KETOROLAC 30 MG/ML VIAL IM (12:39)
[2024-01-30 12:48] VITALS: BP 125/83; PULSE 76; RESP 17; O2SAT 99
== END 2024-01-30 12:49 | disposition home or self-care (01) ==
PROVIDERS: Emergency Provider Registered Nurse
DX: S39.012A Strain of muscle, fascia and tendon of lower back, initial encounter (principal); M54.31 Sciatica, right side; X58.XXXA Exposure to other specified factors, initial encounter
CPT/HCPCS: 96372; 99283; J1885

== ENCOUNTER → 2024-10-29 13:15 | Outpatient (CLI) | payer OTHER, SELFPAY ==
--- NOTE | 2024-10-29 13:18 | DI.MRI.S_ITS ---
PROCEDURE: MR LUMBAR SPINE WO CON INDICATIONS: STRAIN OF LUMBAR REGION TECHNIQUE: Noncontrast sagittal T1 spin echo and T2 fast echo, sagittal STIR, and T2 fast spin echo through the lumbar spine. In cases with scoliosis, additional coronal T2 fast spin echo may be performed. COMPARISON: None. FINDINGS: Image quality: Excellent. Alignment and Curvature: Straightening of the normal lumbar lordosis. Bone Marrow: Marrow is of normal overall signal. No acute vertebral body compression fractures. Spinal Cord: Conus medullaris terminates at the L1 level. Visualized cord demonstrates normal signal and size. Paraspinous Soft Tissues: No paravertebral masses. T12-L1: Normal appearance. L1-L2: Normal appearance. L2-L3: Normal appearance. L3-L4: Normal appearance. L4-L5: Normal appearance. L5-S1: Disc desiccation and mild disc bulge with superimposed central disc protrusion and posterior annular tear. No significant central canal or neural foraminal stenosis. IMPRESSION: Degenerative disc disease at L5-S1 without central canal or neural foraminal stenosis. Dictated by: Lexx Liang M.D. on 10/29/2024 at 14:53 Approved by: eLxx Liang M.D. on 10/29/2024 at 14:55
== END ==
LOC: MRI 13:17
PROVIDERS: Family Provider Family Medicine; Referring Provider Physician Assistant Surgical; Visit Provider Physician Assistant Surgical
DX: S39.012A Strain of muscle, fascia and tendon of lower back, initial encounter (principal); M51.369 Other intervertebral disc degeneration, lumbar region without mention of lumbar back pain or lower extremity pain; M51.379 Other intervertebral disc degeneration, lumbosacral region without mention of lumbar back pain or lower extremity pain; X58.XXXA Exposure to other specified factors, initial encounter
CPT/HCPCS: 72148

== ENCOUNTER 2025-01-29 14:36 | Emergency (ER) | payer OTHER, SELFPAY ==
[2025-01-29 14:42] VITALS: BP 146/87; PULSE 90; RESP 20; TEMP 36.1; O2SAT 96; BMI 28.1
--- NOTE | 2025-01-29 17:01 | ED.BACK ---
HPI - Back Pain/Injury General Chief Complaint: Back Pain/Injury Stated Complaint: Back Pain, Lower Leg Weakness, Nausea Time Seen by Provider: 01/29/25 14:43 Source: patient History of Present Illness HPI Narrative: 29-year-old male presents with chronic low back pain presents with low back pain for the past few days now radiating to his shoulders to his across the back and down the legs. The most pain he has had is most localized to the right lower side. He denies bowel or bladder incontinence but is able to walk. He has not done anything for it. Nothing makes it better or worse. He did report having extensive workup for back issues in his younger years where he had x-rays MRI that shows some disc bulging but no other intervention at that time. Other than what is stated 14 point review of systems negative. Related Data Home Medications ?Medication ?Instructions ?Recorded ?Confirmed cyclobenzaprine 5 mg tablet 5 mg PO BID PRN muscle spasm 01/11/25 01/11/25 dextroamphetamine-amphetamine 5 mg 1 tab PO BID 01/11/25 01/11/25 tablet dextroamphetamine-amphetamine ER 1 cap PO QAM 01/11/25 01/11/25 15 mg 24hr capsule,extend release ferrous sulfate 325 mg (65 mg 325 mg PO 01/11/25 01/11/25 iron) tablet (FeroSul) fluticasone propionate 50 2 spray intranasal DAILY 01/11/25 01/11/25 mcg/actuation nasal spray,suspension Previous Rx's ?Medication ?Instructions ?Recorded venlafaxine 150 mg 150 mg PO QAM #30 caps 06/02/23 capsule,extended release 24 hr meloxicam 7.5 mg tablet 7.5 mg PO BID PRN pain #10 tabs 01/07/24 diclofenac sodium 75 mg 75 mg PO BID PRN pain #30 tabs 01/29/25 tablet,delayed release Allergies Allergy/AdvReac Type Severity Reaction Status Date / Time prednisone AdvReac Intermediate Anxiety Verified 01/29/25 14:43 Review of Systems Review of Systems ROS Unobtainable: All systems reviewed & are unremarkable except as noted in HPI and below Patient History Medical History Endocrine disorder, unspecified Bipolar 2 disorder, major depressive episode Bipolar disorder, unspecified Social History household members: friend(s) Smoking Status: Former smoker second hand exposure: No alcohol intake: current substance use type: marijuana Smoking Status: Former smoker alcohol intake frequency: a few times a month Exam Narrative Exam Narrative: GENERAL: [29] year old patient appears stated age. Well-developed patient, in mild distress. HEAD: Atraumatic. Normocephalic. EYES: Pupils equal round and reactive. Extraocular motions intact. No scleral icterus. No injection or drainage. EXTREMITIES: No edema or joint tenderness. BACK: No deformity or crepitance. No flank tenderness. R paralumbosacral region L 4 L 5 S1 TTP NEURO: AOx3. SKIN: No rash or erythema of visible areas Initial Vital Signs Initial Vital Signs: Vital Signs Temperature 97 F L 01/29/25 14:42 Pulse Rate 90 01/29/25 14:42 Respiratory Rate 20 01/29/25 14:42 Blood Pressure 146/87 H 01/29/25 14:42 Pulse Oximetry 96 01/29/25 14:42 Oxygen Delivery Method Room Air 01/29/25 14:42 Procedures [facility] [place] Procedure Name of Procedure: Right-sided steroid trigger point injection Side (if applicable): right Location: Patient draped and prepped in a sterile fashion using 20-1-1/2 gauge needle 2% lidocaine without epinephrine and 40 mg of Kenalog 1 mL using 10 mL 3 mL at L4 3 mL at L5 and 4 mL at S1 Time out performed: Yes Patient tolerated procedure: Well Complications: none Course Orders Ordered: Discontinued Medications Acetaminophen (Acetaminophen 325 Mg Tablet) 975 mg PO NOW ONE Stop: 01/29/25 17:06 Last Admin: 01/29/25 18:18 Dose: 975 mg Documented By: ELISABET Ibuprofen (Ibuprofen 400 Mg Tablet) 800 mg PO NOW ONE Stop: 01/29/25 17:06 Last Admin: 01/29/25 18:18 Dose: 800 mg Documented By: MPO Lidocaine HCl (Lidocaine 2% Inj Mdv 20ml) 20 ml INJ INTRA-OP ONE Stop: 01/29/25 17:08 Last Admin: 01/29/25 18:24 Dose: Not Given Documented By: MPO Lidocaine HCl (Lidocaine 1% (Pf) 5 Ml) 20 ml INJ NOW ONE Stop: 01/29/25 18:13 Last Admin: 01/29/25 18:18 Dose: 20 ml Documented By: ELISABET Triamcinolone (Triamcinolone 40 Mg/Ml Vial) 40 mg INJ NOW ONE Stop: 01/29/25 17:08 Last Admin: 01/29/25 18:18 Dose: 40 mg Documented By: ELISABET Vital Signs Vital signs: Vital Signs - 8 hr 01/29/25 14:42 Temperature 97 F L Pulse Rate 90 Respiratory Rate 20 Blood Pressure 146/87 H Pulse Oximetry 96 Oxygen Delivery Method Room Air MDM - Back Pain/Injury MDM Narrative Medical decision making narrative: Vital signs nurse triage note medication list previous ER visits all imaging studies reviewed. Patient received trigger point steroid injection for which she tolerated with no complications feels much better. Differential diagnosis includes herniated disc, sciatica, piriformis syndrome, spondylosis, spondylolisthesis. DC home on diclofenac rx. Discharge Plan Departure Patient Disposition: Home Clinical Impression: Acute low back pain Qualifiers: Back pain laterality: right Sciatica presence: with sciatica Sciatica laterality: sciatica of right side Qualified Code(s): M54.41 - Lumbago with sciatica, right side Instructions: DI for Back Pain With Sciatica Activity Restrictions/Additional Instructions: Return with new or worsening symptoms. Take your medicines directed. Follow up PCP in 1-2 weeks if no improvement in symptoms. Prescriptions: New diclofenac sodium 75 mg tablet,delayed release (DR/EC) 75 mg PO BID PRN (Reason: pain) Qty: 30 0RF No Action ferrous sulfate [FeroSul] 325 mg (65 mg iron) tablet 325 mg PO fluticasone propionate 50 mcg/actuation spray,suspension 2 spray intranasal DAILY dextroamphetamine-amphetamine 5 mg tablet 1 tab PO BID dextroamphetamine-amphetamine 15 mg capsule,extended release 24hr 1 cap PO QAM cyclobenzaprine 5 mg tablet 5 mg PO BID PRN (Reason: muscle spasm) venlafaxine 150 mg capsule,extended release 24hr 150 mg PO QAM Qty: 30 0RF meloxicam 7.5 mg tablet 7.5 mg PO BID PRN (Reason: pain) Qty: 10 0RF Referrals: Miscellaneous,Doctor, MD [Primary Care Provider, Medical] Stand Alone Forms: Patient Portal/API
[2025-01-29] MEDS: LIDOCAINE 1% (PF) 5 ML 20 ML INJ (18:18)
[2025-01-29] MEDS: ACETAMINOPHEN 325 MG TABLET 975 MG PO (18:18)
[2025-01-29] MEDS: TRIAMCINOLONE 40 MG/ML VIAL INJ (18:18)
[2025-01-29] MEDS: IBUPROFEN 400 MG TABLET 800 MG PO (18:18)
== END 2025-01-29 19:14 | disposition home or self-care (01) ==
PROVIDERS: Emergency Provider Family Medicine; Family Provider Family Medicine
DX: M54.41 Lumbago with sciatica, right side (principal)
CPT/HCPCS: 20553; 99283; 99284